=== PATIENT | male | born 1940 | race Caucasian/White ===

== ENCOUNTER 2016-11-17 04:34 | Emergency (ER) ==
[2016-11-17 04:51] VITALS: BP 135/70; TEMP 97.4; BMI 39.5
--- NOTE | 2016-11-17 05:38 | ED.PDOC ---
General ED Provider: Dr. ROBERTO MEJIA-ER Chief Complaint: Fall Stated Complaint: i fell about a week ago--my back is really hurting Time Seen by Physician: 04:45 Mode of Arrival: Wheelchair Information Source: Patient Exam Limitations: No limitations Primary Care Provider: MARIELA RICE Nursing and Triage Documentation Reviewed and Agree: Yes Musculoskeletal Complaint Exam - Back Pain Complaint/Exam Mechanism of Injury: Reports: Trauma Onset/Duration: one week Symptoms Are: Still present Timing: Constant Episodes Lasting: Days Initial Severity: Mild Current Severity: Moderate Location: Reports: Discrete (thoracic) Character: Reports: Aching, Stiffness Aggravating: Reports: Movements, Lifting, Bending, Walking Alleviating: Reports: None Associated Signs and Symptoms: Denies: Swelling, Redness, Bruising, Fever, Weakness, Numbness, Tingling, Abdominal pain, Flank pain, Bladder incontinence, Bowel incontinence, Weight loss, Pain with weight bearing Related History: Reports: Similar episode TAD Risk Factors: Reports: Hypertension AAA Risk Factors: Reports: Hypertension Cauda Equina Risk Factors: Reports: None Epidural Abcess Risk Factors: Reports: None Related Surgical History: Reports: None Focal Tenderness: No Paraspinal Muscle Tenderness: No Paraspinal Muscle Spasm: No Scoliosis: No Lordosis: No Kyphosis: No SLR Test: Right Negative, Left Negative Hip Motion Testing Pain: Right Negative, Left Negative Focal Weakness: Present: None Focal Sensory Loss: Present: None Gait: Present: Abnormal Differential Diagnoses: Fracture, Herniated Disk, Strain, Sprain Review of Systems - Review Of Systems Constitutional: Reports: No symptoms Eyes: Reports: No symptoms Ears, Nose, Mouth, Throat: Reports: No symptoms Respiratory: Reports: No symptoms Cardiac: Reports: No symptoms GI: Reports: No symptoms : Reports: No symptoms Musculoskeletal: Reports: Back pain Skin: Reports: No symptoms Neurological: Reports: No symptoms Endocrine: Reports: No symptoms Hematologic/Lymphatic: Reports: No symptoms All Other Systems: Reviewed and Negative Past Medical History - Past Medical History Endocrine: Reports: Dyslipidemia Cardiovascular: Reports: CAD, [place], Hypertension Respiratory: Reports: Unknown Hematological: Reports: Unknown Gastrointestinal: Reports: Unknown Genitourinary: Reports: Unknown Neuro/Psych: Reports: Unknown Musculoskeletal: Reports: Unknown Cancer: Reports: Unknown - Surgical History General Surgical History: Reports: Unknown - Family History Family History: Reports: Unknown - Social History Smoking Status: Former smoker Hx Substance Use: No Alcohol Screening: None Lives: With family - Immunizations Tetanus Shot up to Date: No (unsure) Physical Exam - Physical Exam Appearance: Well-appearing, No pain distress, Well-nourished Pain Distress: Mild Eyes: KRISTIN, EOMI, Conjunctiva clear ENT: Ears normal, Nose normal, Oropharynx normal Neck: Supple Respiratory: Airway patent, Breath sounds clear, Breath sounds equal, Respirations nonlabored Cardiovascular: RRR, Pulses normal, No rub, No murmur GI/: Soft, Nontender, No masses, Bowel sounds normal, No Organomegaly Musculoskeletal: Normal strength, ROM intact, No edema, No calf tenderness Skin: Warm, Dry, Normal color Neurological: Sensation intact, Motor intact, Reflexes intact, Cranial nerves intact, Alert, Oriented Psychiatric: Affect appropriate, Mood appropriate Interpretation - Radiology Interpretation Radiology Interpretation By: Radiologist Radiology Results: Negative Exam Interpreted: CT Scan Critical Care Note - Critical Care Note Total Time (mins): 0 Course - Course Orders, Labs, Meds: Orders Category Date Time Status CT LUMBAR SPINE W/O CONTRAST Stat RADS 11/17/16 04:[address] THORACIC SPINE W/O CONTRAST Stat RADS 11/17/16 04:54 Completed Vital Signs: Temp Pulse Resp BP Pulse Ox 11/17/16 04:35 97.4 F L 60 20 135/70 94 L Departure - Departure Time of Disposition: 06:08 Disposition: HOME SELF-CARE Discharge Problem: Thoracic back pain Qualifiers: Chronicity: acute Back pain laterality: midline Qualifier Code: (M54.6) Pain in thoracic spine Instructions: Back Pain (ED) Condition: Good Pt referred to PMD for follow-up: Yes Additional Instructions: norco 7.5mg q 4hrs prn pain #25--f/u wtih dr lebron Allergies/Adverse Reactions: Allergies No Known Allergies Allergy (Unverified 11/17/16 04:50) Home Medications: Ambulatory Orders Amiodarone HCl [Cordarone] 200 mg PO DAILY 11/17/16 Aspirin [Aspirin EC] 81 mg PO DAILYWM 11/17/16 Atorvastatin Calcium [Lipitor] 40 mg PO DAILY 11/17/16 Canagliflozin [Invokana] 100 mg PO DAILY 11/17/16 Carvedilol [Coreg] 6.25 mg PO BID 11/17/16 Ergocalciferol (Vitamin D2) [Vitamin D2] 50,000 unit PO DIRECTED 11/17/16 Furosemide 20 mg PO DAILY 11/17/16 Gabapentin 300 mg PO DAILY 11/17/16 Hydrocodone Bit/Acetaminophen [[place] 5-325] 5 - 10 mg PO Q4H PRN 11/17/16 Insulin Glargine,Hum.rec.anlog [Lantus] 40 unit SQ BID 11/17/16 Levothyroxine Sodium [Synthroid] 100 mcg PO QDAC 11/17/16 Metolazone [Zaroxolyn] 2.5 mg PO DAILY 11/17/16 Multivitamins,Therapeutic [Thera-Tabs] 1 each PO DAILY 11/17/16 Potassium Chloride [K-Dur] 20 meq PO DAILY 11/17/16 Disposition Discussed With: Patient, Family
--- NOTE | 2016-11-17 05:54 | CT ---
EXAM: CT of the lumbar spine without contrast. HISTORY: Fall. PROCEDURE: Contiguous axial CT images of the lumbar spine without contrast with coronal and sagitta l reformats. FINDINGS: There is 0.3 cm retrolisthesis of L3 on L4. There is normal alignment of the other lumba r vertebral bodies and facets. The vertebral body heights are maintained. There is severe disc spa ce narrowing at multiple levels of the lumbar spine. There is vacuum disc phenomenon at all levels of the lumbar spine. There are posterior osteophytes at multiple levels of the lumbar spine with mu ltilevel neural foraminal narrowing. There is multilevel facet arthropathy. There is spinal stenos is at L3-L4 and L4-5 secondary to posterior osteophytes, facet arthropathy and ligamentum flavum hyp ertrophy with the AP diameter of the spinal canal measuring approximately 0.7 cm at both levels. Impression: No evidence of fracture. 0.3 cm retrolisthesis of L3 on L4 secondary to facet arthropathy. Multilevel degenerative changes as described. Multilevel neural foraminal narrowing as described. Multilevel spinal stenosis as described.
--- NOTE | 2016-11-17 06:00 | CT ---
EXAM: CT of the thoracic spine without contrast. HISTORY: Fall. PROCEDURE: Contiguous axial CT images of the thoracic spine without contrast with coronal and sagit swetha reformats. Comparison: None. FINDINGS: There are compression deformities of the T1, T5, T6, T7, T8, T9, and T10 vertebral bodies with up to 25% loss of vertebral body height which appear chronic. No retropulsion. No definite ac hamilton fracture identified in the thoracic spine. The intervertebral disc spaces are maintained. There are anterior osteophytes at multiple levels of the thoracic spine. Impression: Compression deformities of the T1 and T5 through T10 vertebral bodies with up to 25% lo ss of vertebral body height which appear chronic. Recommend correlation with physical exam. Normal alignment of the thoracic spine with degenerative changes as described.
== END 2016-11-17 06:15 | disposition home or self-care (01) ==
LOC: ED 04:34
DX: M54.6 Pain in thoracic spine (principal); I10 Essential (primary) hypertension; W19.XXXA Unspecified fall, initial encounter
CPT/HCPCS: 99283

== ENCOUNTER 2016-11-18 13:50 | Outpatient (CLI) ==
[2016-11-17 04:51] VITALS: BMI 39.5
--- NOTE | 2016-11-18 15:16 | US ---
Examination: Villegas-scale and color Doppler ultrasonographic imaging of the abdomen. Right upper jenny drant ultrasound. Comparison: None available. Reason for study: Abdominal pain. FINDINGS: Examination is limited by the patient's body habitus. The liver measures approximately 14.9 cm in length with normal appearing echotexture. There is norm al antegrade portal blood flow. No obvious intrahepatic ductal dilatation. No obvious perihepatic free fluid. The gallbladder has been removed. The common bile duct measures approximately 0.4 cm in diameter which is within normal limits. The pancreas is not well seen secondary to overlying bowel gas and patient body habitus. The right kidney measures approximately 10.7 x 5.3 x 5.8 cm with normal appearing echotexture and va scular flow. No obvious nephrolithiasis. In the midportion of the right kidney. There is a well m arginated cystic structure measuring approximately 3.1 x 3.1 x 2.5 cm without interval vascularity. Impression: 1. Technically limited examination secondary to body habitus. No obvious intra-abdominal findings. 2. Right renal cyst.
== END 2016-11-18 13:51 | disposition home or self-care (01) ==
LOC: RAD 13:50
PROVIDERS: ATTEND Emergency Medicine
DX: R10.9 Unspecified abdominal pain (principal)

== ENCOUNTER 2017-04-07 20:42 | Outpatient (CLI) | END 2017-04-07 20:43 | disposition home or self-care (01) | LOC: AMBL 20:42 | PROVIDERS: ATTEND Internal Medicine Geriatric Medicine | DX: R53.1 Weakness (principal); W06.XXXA Fall from bed, initial encounter ==

== ENCOUNTER 2017-05-19 19:40 | Outpatient (CLI) | END 2017-05-19 19:41 | disposition home or self-care (01) | LOC: AMBL 19:40 | PROVIDERS: ATTEND Internal Medicine Geriatric Medicine | DX: Z04.3 Encounter for examination and observation following other accident (principal); W19.XXXA Unspecified fall, initial encounter ==

== ENCOUNTER 2017-06-24 12:30 | Outpatient (CLI) ==
[2017-06-24 13:08] LABS: CREATININE 1.34 mg/dL (0.60-1.10)
--- NOTE | 2017-06-24 17:07 | CT ---
EXAM: CT Head HISTORY: Headaches, injury COMPARISON: None TECHNIQUE: CT head performed without contrast FINDINGS: Small hyperdensity along right anterior falx may represent small subdural hemorrhage along the falx measuring up to 2 mm versus artifact secondary to falx calcification. This is best seen on coronal imaging 13 - 16. Bender white differentiation is preserved. The ventricles, sulci, and basal cisterns are patent and symmetric. There is chronic ischemic disease of the white matter and cerebr al volume loss. There is no depressed calvarial fracture. The mastoid air cells are clear. The visu alized paranasal sinuses are clear. There are intracranial atherosclerotic calcifications. IMPRESSION: 1. Small hyperdensity along right anterior falx may represent small subdural hemorrhage along the fal x measuring up to 2 mm versus artifact secondary to falx calcification. Follow-up is recommended. No midline shift. 2. Right parietal scalp hematoma. No depressed calvarial fracture. 3. Chronic ischemic disease of the white matter and cerebral volume loss. Critical finding #[address] Dia 4:59 p.m. 06/24/2017.
== END 2017-06-24 12:31 | disposition home or self-care (01) ==
LOC: LAB 12:30
PROVIDERS: ATTEND Internal Medicine
DX: S09.90XA Unspecified injury of head, initial encounter (principal); R51 Headache
CPT/HCPCS: 36415; 82565

== ENCOUNTER 2017-06-26 08:49 | Outpatient (CLI) ==
--- NOTE | 2017-06-26 09:23 | CT ---
EXAM: CT of the head without contrast History: Follow-up subdural hemorrhage. Comparison: Head CT 06/24/2017 Technique: Multiplanar CT images through the head were obtained without the administration of IV con trast Findings: The visualized paranasal sinuses and mastoid air cells are clear in general. No acute jose varial abnormalities. No significant interval change in the right posterior scalp hematoma. Intracranially the ventricular and cisternal spaces are normal in size, shape and configuration for a patient of this age. No dominant mass or midline shift. No hydrocephalous. No acute intracranial hemorrhage or abnormal extraaxial fluid collections. Impression: 1. No acute intracranial hemorrhage. 2. No change in the right scalp hematoma.
== END 2017-06-26 08:50 | disposition home or self-care (01) ==
LOC: RAD 08:49
PROVIDERS: ATTEND Internal Medicine
DX: S09.90XD Unspecified injury of head, subsequent encounter (principal)

== ENCOUNTER 2017-12-06 10:45 | Outpatient (CLI) | END 2017-12-06 10:46 | disposition left against medical advice (07) | LOC: AMBL 10:45 | PROVIDERS: ATTEND Family Medicine | DX: R53.1 Weakness (principal); M25.551 Pain in right hip; W19.XXXA Unspecified fall, initial encounter ==

== ENCOUNTER 2017-12-08 17:15 | Outpatient (CLI) | END 2017-12-08 17:16 | disposition home or self-care (01) | LOC: AMBL 17:15 | PROVIDERS: ATTEND Emergency Medicine | DX: Z74.2 Need for assistance at home and no other household member able to render care (principal) ==

== ENCOUNTER 2018-01-27 18:35 | Outpatient (CLI) | END 2018-01-27 18:36 | disposition left against medical advice (07) | LOC: AMBL 18:35 | PROVIDERS: ATTEND Internal Medicine | DX: Z74.2 Need for assistance at home and no other household member able to render care (principal); W19.XXXA Unspecified fall, initial encounter ==

== ENCOUNTER 2018-02-02 21:17 | Outpatient (CLI) | END 2018-02-02 21:18 | disposition left against medical advice (07) | LOC: AMBL 21:17 | PROVIDERS: ATTEND Emergency Medicine | DX: Z74.2 Need for assistance at home and no other household member able to render care (principal) ==

== ENCOUNTER 2018-02-05 13:35 | Outpatient (CLI) ==
--- NOTE | 2018-02-05 14:30 | CT ---
EXAM: CT BRAIN HISTORY: Right-sided weakness TECHNIQUE: CT brain without intravenous contrast. 5-mm axial sections with Reformations. COMPARISON: 06/26/2017 FINDINGS: There is mild generalized atrophy. There is at least mild periventricular and deep white matter low attenuation which although nonspecific is suggestive of chronic microvascular ischemic change. These findings are stable. Brain otherwise is unremarkable without evidence of hemorrhage or large vessel distribution recent is chemic infarction. There is no suggestion of acute hydrocephalus or subdural fluid collection. No m ass or mass effect. Cranium is within normal limits. Mastoid processes are aerated. The visualized paranasal sinuses a re clear. IMPRESSION: No acute intracranial process.
== END 2018-02-05 13:36 | disposition home or self-care (01) ==
LOC: RAD 13:35
PROVIDERS: ATTEND Internal Medicine
DX: R53.1 Weakness (principal); R29.6 Repeated falls

== ENCOUNTER 2018-02-19 16:38 | Outpatient (CLI) | END 2018-02-19 16:39 | disposition left against medical advice (07) | LOC: AMBL 16:38 | PROVIDERS: ATTEND Internal Medicine | DX: Z74.2 Need for assistance at home and no other household member able to render care (principal); R53.1 Weakness; W19.XXXA Unspecified fall, initial encounter ==

== ENCOUNTER 2018-03-14 18:30 | Outpatient (CLI) | END 2018-03-14 18:31 | disposition left against medical advice (07) | LOC: AMBL 18:30 | PROVIDERS: ATTEND Emergency Medicine | DX: Z74.2 Need for assistance at home and no other household member able to render care (principal); W19.XXXA Unspecified fall, initial encounter ==

== ENCOUNTER 2018-03-17 12:22 | Outpatient (CLI) | END 2018-03-17 12:23 | disposition left against medical advice (07) | LOC: AMBL 12:22 | PROVIDERS: ATTEND Internal Medicine | DX: R26.9 Unspecified abnormalities of gait and mobility (principal); R29.6 Repeated falls; W19.XXXA Unspecified fall, initial encounter ==

== ENCOUNTER 2018-06-26 22:52 | Outpatient (CLI) | END 2018-06-26 23:10 | disposition short-term general hospital (02) | LOC: AMBL 22:52 | PROVIDERS: ATTEND Internal Medicine Geriatric Medicine | DX: R53.1 Weakness (principal); R41.0 Disorientation, unspecified; R06.03 Acute respiratory distress; R73.9 Hyperglycemia, unspecified; I49.3 Ventricular premature depolarization; Z95.0 Presence of cardiac pacemaker ==

== ENCOUNTER 2018-07-14 14:05 | Outpatient (CLI) | END 2018-07-14 14:06 | disposition home or self-care (01) | LOC: AMBL 14:05 | PROVIDERS: ATTEND Internal Medicine | DX: R53.1 Weakness (principal); R41.0 Disorientation, unspecified; E66.01 Morbid (severe) obesity due to excess calories; Z98.2 Presence of cerebrospinal fluid drainage device; Z96.0 Presence of urogenital implants ==

== ENCOUNTER 2018-07-27 14:24 | Inpatient (IN) ==
--- NOTE | 2018-07-27 15:06 | ED.PDOC ---
General ED Provider: Dr. ROBERTO GROSS Chief Complaint: Shortness of Air Stated Complaint: Altered mental status. 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 Started having problems with confusion, altered mental status. Hx of multiple falls. Concern expresed over coughing and respiratory congestion and possible uti. His states has not been acting like self and was up all night, complaining of shortness of breat, has edema of both legs Time Seen by Physician: 14:50 Mode of Arrival: Ambulance Information Source: Patient, Family, Intermediate Exam Limitations: No limitations Primary Care Provider: YEYO GILL Nursing and Triage Documentation Reviewed and Agree: Yes Does patient meet sepsis criteria?: No System Inflammatory Response Syndrome: Not Applicable Sepsis Protocol: For patient's 13 years and over: Temp is 96.8 and below OR 101 and greater Pulse >90 BPM Resp >20/minute Acutely Altered Mental Status Are patient's symptoms suggestive of a new infection, such as: -Pneumonia -Skin, Soft Tissue -Endocarditis -UTI -Bone, Joint Infection -Implantable Device -Acute Abdominal Infection -Wound Infection -Meningitis -Blood Stream Catheter Infection -Unknown Neurological Complaint Exam - Altered Mental Status Complaint/Exam Current Mental Status: Confusion, Other (decrease loc) Onset: Gradual Symptoms Are: Still present Timing: Constant Episodes Lasting: Hours Initial Severity: Moderate Current Severity: Moderate Character: Reports: Lethargy Alleviating: Reports: None Associated Signs and Symptoms: Reports: Dizziness, Weakness, Headache Related History: Denies: Similar episode Cardiac Risk Factors: Reports: None CVA Risk Factors: Reports: None 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 Carotid Bruit Present: Yes Nystagmus Present: Yes Gag Reflex Present: Yes Meningeal Signs Positive: No Focal Weakness: Present: None Focal Sensory Loss: Present: None Gait: Unable Babinski Sign: Negative Right, Negative Left Heel to Toe Normal: No Thrombolytics Considered: No Differential Diagnoses: Metabolic Disorder, Medication reaction, Sepsis Review of Systems - Review Of Systems Constitutional: Reports: Fever, Malaise, Weakness Eyes: Reports: No symptoms Ears, Nose, Mouth, Throat: Reports: No symptoms Respiratory: Reports: Cough, Short of air Cardiac: Reports: No symptoms GI: Reports: No symptoms : Reports: No symptoms Musculoskeletal: Reports: No symptoms Skin: Reports: No symptoms Neurological: Reports: Cognitive dysfunction Endocrine: Reports: No symptoms Hematologic/Lymphatic: Reports: No symptoms All Other Systems: Reviewed and Negative Past Medical History - Past Medical History Endocrine: Reports: Dyslipidemia Cardiovascular: Reports: CAD, [place], Hypertension Respiratory: Reports: Unknown Hematological: Reports: Unknown Gastrointestinal: Reports: Unknown Genitourinary: Reports: Unknown Neuro/Psych: Reports: Unknown Musculoskeletal: Reports: Unknown Cancer: Reports: Unknown - Surgical History General Surgical History: Reports: Unknown - Family History Family History: Reports: Unknown - Social History Smoking Status: Former smoker Hx Substance Use: No Alcohol Screening: None Physical Exam - Physical Exam Appearance: Ill-appearing, Obese Ill-appearing: Moderate Pain Distress: Moderate Eyes: KRISTIN, EOMI, Conjunctiva clear ENT: Ears normal, Nose normal, Oropharynx normal Neck: Supple Respiratory: Airway patent, Breath sounds clear, Breath sounds diminished, Respirations nonlabored, Crackles Cardiovascular: RRR, Pulses normal, No rub, No murmur GI/: Soft, Nontender, No masses, Bowel sounds normal, No Organomegaly Musculoskeletal: Normal strength, ROM intact, No edema, No calf tenderness Skin: Warm, Dry, Normal color Neurological: Sensation intact, Motor intact, Reflexes intact, Cranial nerves intact, Oriented, Alert to verbal, Alert to pain Psychiatric: Affect appropriate (Flattened), Anxious Physician Notification - Case Discussed Physician Notified: Dr Gill Time of Notification: 16:30 (Admit for eval and treatment) Critical Care Note - Critical Care Note Total Time (mins): 60 Course - Course Hematology/Chemistry: 07/27/18 15:43 07/27/18 15:43 Orders, Labs, Meds: Lab Review 07/27/18 07/27/18 07/27/18 15:12 15:20 15:35 WBC RBC Hgb Hct MCV MCH MCHC RDW Coeff of Jim Plt Count Immature Gran % (Auto) Neut % (Auto) Lymph % (Auto) [place] % (Auto) Eos % (Auto) Baso % (Auto) Immature Gran # (Auto) Neut # (Auto) Lymph # (Auto) [place] # (Auto) Eos # (Auto) Baso # (Auto) ESR Puncture Site Rr O2 Saturation 98.0 ABG pH 7.508 H* ABG pCO2 30.4 L ABG pO2 90.0 ABG HCO3 24.2 ABG Total CO2 25 ABG Base Excess 1 Kole Test + FiO2 % 21.0 Sodium Potassium Chloride Carbon Dioxide Anion Gap BUN Creatinine Estimated GFR (MDRD) BUN/Creatinine Ratio Glucose Lactic Acid Calcium Total Bilirubin AST ALT Alkaline Phosphatase Troponin I 0.019 Total Protein Albumin Globulin Albumin/Globulin Ratio Procalcitonin 0.10 Influ A Molecular Assay Influ B Molecular Assay 07/27/18 07/27/18 07/27/18 15:43 15:43 15:43 WBC 12.99 H RBC 4.99 Hgb 14.0 Hct 41.2 L MCV 82.6 MCH 28.1 MCHC 34.0 RDW Coeff of Jim 14.2 Plt Count 144 Immature Gran % (Auto) 0.7 Neut % (Auto) 84.0 Lymph % (Auto) 6.9 L [place] % (Auto) 7.8 Eos % (Auto) 0.4 Baso % (Auto) 0.2 Immature Gran # (Auto) 0.1 Neut # (Auto) 10.9 H Lymph # (Auto) 0.9 [place] # (Auto) 1.0 Eos # (Auto) 0.1 Baso # (Auto) 0.0 ESR 30 H Puncture Site O2 Saturation ABG pH ABG pCO2 ABG pO2 ABG HCO3 ABG Total CO2 ABG Base Excess Kole Test FiO2 % Sodium 133.3 L Potassium 3.66 Chloride 104.2 Carbon Dioxide 24.7 Anion Gap 8.06 BUN 16.9 Creatinine 1.12 H Estimated GFR (MDRD) 63.00 BUN/Creatinine Ratio 15.08 Glucose 86.5 Lactic Acid 0.81 Calcium 9.27 Total Bilirubin 2.00 H AST 35.0 ALT 56.1 H Alkaline Phosphatase 74.8 Troponin I 0.019 Total Protein 6.93 Albumin 3.70 Globulin 3.23 Albumin/Globulin Ratio 1.14 Procalcitonin Influ A Molecular Assay Influ B Molecular Assay 07/27/18 15:51 WBC RBC Hgb Hct MCV MCH MCHC RDW Coeff of Jim Plt Count Immature Gran % (Auto) Neut % (Auto) Lymph % (Auto) [place] % (Auto) Eos % (Auto) Baso % (Auto) Immature Gran # (Auto) Neut # (Auto) Lymph # (Auto) [place] # (Auto) Eos # (Auto) Baso # (Auto) ESR Puncture Site O2 Saturation ABG pH ABG pCO2 ABG pO2 ABG HCO3 ABG Total CO2 ABG Base Excess Kole Test FiO2 % Sodium Potassium Chloride Carbon Dioxide Anion Gap BUN Creatinine Estimated GFR (MDRD) BUN/Creatinine Ratio Glucose Lactic Acid Calcium Total Bilirubin AST ALT Alkaline Phosphatase Troponin I Total Protein Albumin Globulin Albumin/Globulin Ratio Procalcitonin Influ A Molecular Assay Negative by naat Influ B Molecular Assay Negative by naat Orders Category Date Time Status ADMIT PATIENT INPATIENT .TO SCU (MONITORED BED) ADMISSION 07/27/18 17:04 Active ABG DRAW REQUEST Stat CARDIO 07/27/18 15:24 Completed ECHOCARDIOGRAM 2D-M MODE Routine CARDIO 07/27/18 16:55 Ordered EKG-(IP & OP ONLY) Routine CARDIO 07/27/18 16:57 Completed OXYGEN Routine CARDIO 07/27/18 16:55 Active ACTIVITY .Complete BR CARE 07/27/18 16:56 Active BLOOD GLUCOSE MONITORING 0630,1100,1700,2100 CARE 07/27/18 16:57 Active INTAKE & OUTPUT Q8HR CARE 07/27/18 16:55 Active TELEMETRY MONITORING TELE CARE 07/27/18 17:05 Active VITAL SIGNS Q4HR CARE 07/27/18 16:55 Active 2 GRAM SODIUM DIET DIETARY 07/27/18 Dinner Ordered IV [ED IV/MEDIPORT/POWERPORT] .ONCE EMERGENCY 07/27/18 16:34 Active ABG Stat LAB 07/27/18 15:20 Completed BASIC METABOLIC PANEL DAILY@0600 LAB 07/28/18 06:00 Ordered BASIC METABOLIC PANEL DAILY@0600 LAB 07/29/18 06:00 Ordered BLOOD CULTURE (ED ONLY) Stat LAB 07/27/18 15:43 Received CBC W/ AUTO DIFF DAILY@0600 LAB 07/28/18 06:00 Ordered CBC W/ AUTO DIFF DAILY@0600 LAB 07/29/18 06:00 Ordered CBC W/ AUTO DIFF Stat LAB 07/27/18 15:43 Completed CMP [COMPREHENSIVE METABOLIC PANEL] Stat LAB 07/27/18 15:43 Completed ESR Stat LAB 07/27/18 15:43 Completed FLU A & B MOLECULAR [FLU A/B MOLECULAR] Stat LAB 07/27/18 15:51 Completed LACTIC ACID Stat LAB 07/27/18 15:43 Completed PROCALCITONIN Stat LAB 07/27/18 15:12 Completed PT WITH INR DAILY@0600 LAB 07/28/18 06:00 Ordered PT WITH INR DAILY@0600 LAB 07/29/18 06:00 Ordered RAPID STREP SCREEN [MOLECULAR GROUP A STREP] Stat LAB 07/27/18 15:51 Completed TROPONIN I Q8H LAB 07/27/18 15:35 Completed TROPONIN I Q8H LAB 07/28/18 07:00 Ordered TROPONIN I Stat LAB 07/27/18 15:43 Completed UA [URINALYSIS C & S IF INDICATED] Stat LAB 07/27/18 18:43 Completed URINE CULTURE Stat LAB 07/27/18 18:43 Received 0.9 % Sodium Chloride [Saline Flush] MEDS 07/27/18 16:34 Ordered 1 syr IVF PRN PRN Enoxaparin Sodium [Lovenox] MEDS 07/27/18 17:00 Ordered 40 mg SUBCUT DAILY Furosemide [Lasix] MEDS 07/28/18 06:30 Ordered 20 mg IVP QDAC Furosemide [Lasix] MEDS 07/27/18 16:35 Discontinued 40 mg IVP ONCE STA RESUSCITATION STATUS Routine OTHERS 07/27/18 16:[address] CHEST W/O CONTRAST Stat RADS 07/27/18 15:[address] HEAD W/O CONTRAST Stat RADS 07/27/18 15:25 Completed Medications Generic Name Dose Route Start Last Admin Trade Name Freq PRN Reason Stop Dose Admin Acetaminophen 650 mg 07/27/18 19:04 Tylenol PO PRN PRN Mild pain/Fever Hydrocodone Bitart/Acetaminophen 1 tab 07/27/18 19:04 [place] 5-325 PO Q6H PRN MODERATE PAIN Amiodarone HCl 200 mg 07/28/18 09:00 Cordarone PO DAILY [place] Aspirin 81 mg 07/28/18 08:00 Aspirin Ec PO DAILYWM [place] Bisacodyl 10 mg 07/27/18 19:04 Dulcolax RC Q24H PRN Constipation Carvedilol 12.5 mg 07/27/18 21:00 Coreg PO BID [place] Enoxaparin Sodium 40 mg 07/27/18 17:00 07/27/18 19:39 Lovenox SUBCUT 40 mg DAILY [place] Administration Furosemide 20 mg 07/28/18 06:30 Lasix IVP QDAC [place] Insulin Glargine 45 unit 07/27/18 21:00 Lantus SUBCUT BID [place] Levothyroxine Sodium 100 mcg 07/28/18 06:30 Synthroid PO QDAC [place] Magnesium Hydroxide 30 ml 07/27/18 19:04 Milk Of Magnesia PO DAILY PRN Constipation Non-Formulary Medication 30 gm 07/27/18 21:00 Nystatin [Nystatin] TP BID [place] Potassium Chloride 20 meq 07/28/18 09:00 K-Dur PO DAILY [place] Sodium Chloride 1 syr 07/27/18 16:34 07/27/18 16:43 Saline Flush IVF 1 syr PRN PRN Administration To flush IV Tamsulosin HCl 0.4 mg 07/28/18 09:00 Flomax PO DAILY [place] Discontinued Medications Generic Name Dose Route Start Last Admin Trade Name Freq PRN Reason Stop Dose Admin Furosemide 40 mg 07/27/18 16:35 07/27/18 16:42 Lasix IVP 07/27/18 16:36 40 mg ONCE STA Administration Vital Signs: Temp Pulse Resp BP Pulse Ox 07/27/18 14:26 100.7 F H 66 22 135/58 L 91 L Departure - Departure Time of Disposition: 16:30 Disposition: ADMITTED INPATIENT Discharge Problem: CHF (congestive heart failure), HTN (hypertension) Condition: Poor Pt referred to PMD for follow-up: Yes (dr gill) MP verified?: No Allergies/Adverse Reactions: Allergies No Known Allergies Allergy (Verified 07/27/18 14:34) Home Medications: Ambulatory Orders Amiodarone HCl [Cordarone] 200 mg PO DAILY 11/17/16 Aspirin [Aspirin EC] 81 mg PO DAILYWM 11/17/16 Atorvastatin Calcium [Lipitor] 20 mg PO DAILY 11/17/16 Carvedilol [Coreg] 12.5 mg PO BID 11/17/16 Ergocalciferol (Vitamin D2) [Vitamin D2] 50,000 unit PO WE 11/17/16 Furosemide 20 mg PO DAILY 11/17/16 Hydrocodone Bit/Acetaminophen [[place] 5-325] 1 tab PO Q6H PRN 11/17/16 Insulin Glargine,Hum.rec.anlog [Lantus] 45 unit SQ BID 11/17/16 Levothyroxine Sodium [Synthroid] 100 mcg PO QDAC 11/17/16 Multivitamin,Therapeutic [Thera-Tabs] 1 each PO DAILY 11/17/16 Potassium Chloride [K-Dur] 20 meq PO DAILY 11/17/16 Acetaminophen 650 mg PO PRN PRN 07/27/18 Bacitracin/Polymyxin B Sulfate [Bacitracin-Polymyxin Ointment] 1 each TP BID Bisacodyl 10 mg RC Q24H PRN 07/27/18 Magnesium Hydroxide [Milk of Magnesia] 30 ml PO DAILY PRN 07/27/18 Nystatin 30 gm TP BID 07/27/18 Tamsulosin HCl [Flomax] 0.4 mg PO DAILY 07/27/18 Disposition Discussed With: Patient, Family ( advised patient is DNR/He concurs)
--- NOTE | 2018-07-27 16:25 | CT ---
EXAM: CT THORAX HISTORY: Respiratory congestion, altered mental status. TECHNIQUE: CT thorax without intravenous contrast. Multiplanar images presented. COMPARISON: None FINDINGS: Cardiomegaly is present. Calcification of the left apical myocardium possibly related to previous in farction. There is moderately severe atherosclerotic disease. Limited evaluation of the mediastinum and hilar structures without the administration of intravenous contrast agent. There are scattered s mall mediastinal lymph nodes becoming conglomerate in the precarinal space. No definite hilar mass i s seen. Lungs reveal trace pleural effusions. There is mild to moderate pulmonary vascular congestion. Mini mal areas of interstitial edema may be present. Subtle bibasilar consolidations probably related to atelectasis. There is a 7 mm anterior right lung base nodule with no definite calcification. No pne umothorax. Bones reveal moderate degenerative changes of the spine with bridging osteophytic spurs. Probable ea rly compression deformity at what is thought to represent T9. Correlate clinically for any mid back pain. Prior sternotomy. There is mild bilateral gynecomastia. Probable cyst of the posterior right renal cortex. IMPRESSION: 1. Cardiomegaly, pulmonary vascular congestion and possible subtle interstitial edema. Trace pleura l effusions. Moderately severe atherosclerotic disease. Minimal left basilar atelectasis. 2. Nonspecific mediastinal lymph nodes. 3. There is a 7 mm anterior right lung base nodule which is indeterminate. Follow-up CT thorax in 3 months is recommended. 4. Probable early vertebral body compression deformity at T9.
--- NOTE | 2018-07-27 16:29 | CT ---
EXAM: CT Head HISTORY: Increased confusion, post MUSHROOM GROWTH MEDIA MIXER shunt COMPARISON: 02/05/2018 TECHNIQUE: CT head performed without intravenous contrast. FINDINGS: There is right-sided ventriculoperitoneal shunt terminating near midline in the region of t he frontal horns lateral ventricles. Small low attenuation in the right frontal region near the shun t catheter. Ventricular size is unchanged. There is no midline shift, or intracranial hemmorhage. G mila white differentiation is preserved. There is no extra-axial collection. The ventricles, sulci, and basal cisterns are patent and symmetric. There is chronic ischemic disease of the white matter a nd cerebral volume loss. There is no depressed calvarial fracture. The mastoid air cells are clear. The visualized paranasal sinuses are clear. There are intracranial atherosclerotic calcifications. IMPRESSION: 1. No intracranial hemorrhage or midline shift 2. Right-sided ventriculostomy shunt catheter terminating near midline. Small low attenuation in the right frontal region near the shunt catheter likely relates to recent shunt placement. Ventricular s ize is unchanged. 3. Chronic ischemic disease of the white matter and cerebral volume loss.
[2018-07-27] MEDS ORDERED: LASIX IVP STA (16:35)
[2018-07-27 19:04] VITALS: BMI 41.8
[2018-07-27] MEDS ORDERED: TYLENOL PO PRN (19:04)
[2018-07-27] MEDS ORDERED: MILK OF MAGNESIA PO PRN (19:04)
[2018-07-27] MEDS ORDERED: NORCO 5-325 PO PRN (19:04)
[2018-07-27] MEDS ORDERED: DULCOLAX RC PRN (19:04)
[2018-07-27] MEDS: LOVENOX SUBCUT SCH (19:39)
[2018-07-27] MEDS ORDERED: NYSTATIN 30 GM TP SCH (21:00)
[2018-07-27] MEDS ORDERED: LANTUS SUBCUT SCH (21:00)
[2018-07-27] MEDS ORDERED: COREG PO SCH (21:00)
[2018-07-27] MEDS ORDERED: NYSTOP POWDER TP ONE (22:52)
[2018-07-27] MEDS: XOPENEX 1.25 MG NEB SCH (23:08)
[2018-07-27] MEDS ORDERED: XOPENEX 1.25 MG NEB ONE (23:08)
[2018-07-28] MEDS: XOPENEX 1.25 MG NEB SCH ×4 (04:38→23:15)
[2018-07-28] MEDS ORDERED: LASIX IVP SCH (06:30)
[2018-07-28] MEDS: SYNTHROID PO SCH (06:31)
[2018-07-28] MEDS ORDERED: LASIX IVP STA (08:28)
[2018-07-28] MEDS ORDERED: DECADRON 4 MG/ML SDV IM STA (08:29)
[2018-07-28] MEDS: ASPIRIN EC PO SCH (10:06)
[2018-07-28] MEDS: COREG PO SCH ×2 (10:06→16:58)
[2018-07-28] MEDS: FLOMAX PO SCH (10:06)
[2018-07-28] MEDS: K-DUR PO SCH (10:06)
[2018-07-28] MEDS: CORDARONE PO SCH (10:06)
[2018-07-28] MEDS: LANTUS SUBCUT SCH ×2 (10:07→20:43)
[2018-07-28] MEDS: LOVENOX SUBCUT SCH (10:08)
[2018-07-28] MEDS: NYSTOP POWDER TP SCH ×2 (10:08→20:47)
--- NOTE | 2018-07-28 14:58 | RS.OTINEVL ---
Subjective - Patient information Date of Evaluation: 07/28/18 Date of Arrival on Unit: 07/27/18 Usual Living Arrangement: [facility] Living Arrangement Comments: Pt is currently at [facility] nursing and rehab. Pt was receiving therapy at [facility]. Home Environment: House Medical History: CHF Medical History Comments:: 1/3 of lower heart is , Trouble emptying bladder , SOA, Pacemaker, hypercholesterolemia, fluid on brain and had a shunt placed on 07/14/18. Circumcision on 07/16/18. Surgical History Comments:: shunt in brain 07/14/18, pacemaker, circumcision 07/16, 5 bypass, defibrillator, Subjective Information/ Patient Comments:: "I feel like shit." "Hurt all over." - Level of function Prior to this admission, the patient could do the following:: Partially Dependent Ambulation Abilities prior to this admission: Before surgeries, patient was independent with ADLS. Current Level of Function: Partially Dependent Current Equipment Used at Home: rolling walker, shower chair Pain Assessment - Pain Pain Score: 6 Side: bilateral Pain Location Body Site: Generalized Pain Aggravating Factors: Changing Position, Exercise/Activity Pain Alleviating Factors: Medication Interventions - Objective Patient Orientation: Person, Place, Situation Current Interventions: IV's, Oxygen, Telemetry Observation: Pt has a delay in processing and requires moderate assistance to move from supine to sit. Interventions - ROM Right Upper Extremity AROM: Slight limitation Left Upper Extremity AROM: Slight limitation - Strength Right Upper Extremity Strength: Mild Weakness Left Upper Extremity Strength: Mild Weakness - Sensation Right Upper Extremity Sensation: Intact/Normal Left Upper Extremity Sensation: Intact/Normal Balance - Sitting Balance Static Sitting Balance: Fair Dynamic Sitting Balance: Fair - Standing Balance Static Standing Balance: Poor Dynamic Standing Balance: Poor - Comments Balance Assessment Comments: Poor ADL Skills - Self Feeding Self Feeding: CGA - Grooming Grooming: Mod Assist - Bathing Bathing UE: Max Assist Bathing LE: Max Assist - Dressing Dressing UE: Max Assist Dressing LE: Max Assist - Toilet Management Toileting Management: Max Assist Functional Mobility - Bed Mobility Rolling R/L: Mod Assist Scooting: Max Assist Supine to Sit: Mod Assist Sit to Supine: Mod Assist - Transfers Sit to Stand: Mod Assist, 2 person assist Stand to Sit: Mod Assist, 2 person assist - Ambulation Weight Bearing Status: FWB Assistive Device Used: Standard Walker Assistance needed with Ambulation: Mod Assist - Safety Awareness Safety Awareness: Good MARIA ALEJANDRA INDEX SCORE: . Additional Treatment Performed - Additional units charged ADL: 18 - Time with patient Length of Evaluation: 30 Total treatment time: 18 Activities Do you enjoy playing games?: No Would you be interested in leaving your room for activities?: Yes Would you enjoy group activities?: No Do you have difficulty with your vision?: No Patient Interests:: Watching Television Patient Education Patient Education: Education of diagnosis, Home Exercise Program, Home Safety Teaching Recipient: Patient, Legal Guardian Teaching Methods: Teach Back Method Used, Discussion Assessment Problem List:: Decreased level of function, Requires training/education, Decreased safety/Risk of falls, Weakness, Pain limits previous level of function Rehab Potential: Good Further Therapy Indicated?: Yes Evaluation Complexity: HISTORY: Medium, EXAM OF BODY SYSTEMS: Medium, CLINICAL DECISION MAKING: Medium Short Term Goals - Goals GOAL 1: Pt to increase RUE functional use to 50% of time. Goal to be met by: 08/03/18 GOAL 2: Pt to increase sitting time EOB to 10 minutes Unsupported. Goal to be met by: 08/03/18 GOAL 3: Pt to increase Upper extremity coordination to reach across midline indep. Goal to be met by: 08/03/18 [facility] Goals GOAL 1: Pt to increase RUE functional use to 100% of time. Goal to be met by: 08/06/18 GOAL 2: Pt to increase sitting time EOB to 15 minutes Unsupported. Goal to be met by: 08/06/18 GOAL 3: Pt to increase RUE coordination to be intact. Goal to be met by: 08/06/18 Plan Plan of Care: Therapeutic EX, Neuromuscular Re-Educ, Therapeutic Activity, Self- Care/Home Management Modalities: Cold Pack/Cryotherapy Frequency of Treatment: 1-2 X day, as tolerated Duration of Treatment: 2 Weeks Anticipated Discharge Destination: Home Treatment Diagnosis (ICD 10 Codes): R27.8 Impaired coordination. Z74.0 Reduced mobility,. Z74.1 Need for assistance with personal care Has the Physician been added for Co-signature?: Yes
--- NOTE | 2018-07-28 15:08 | RS.PTINEVL ---
Subjective - Patient information Date of Evaluation: 07/28/18 Date of Arrival on Unit: 07/27/18 Admitted From:: [facility] ([facility]) Diagnosis: CHF, HTN, Normal pressure hydrocephalus Usual Living Arrangement: [facility] Living Arrangement Comments: has been in long-term since having shunt placement for rehab. Prior to surgery pt lived at home with . Home Environment: House, Stairs (few) Medical History: Hypertension Medical History Comments:: CAD, PR, normal pressure hydrocephalus LATEX ALLERGY?: No Surgical History Comments:: ventriculoperitoneal shunt placement 07/16/18, circumcision 07/16/18 Medications: see chart Subjective Information/ Patient Comments:: pt with difficulty with word finding issues and slow processing with instructions. pt states he feels bad today. - Level of function Prior to this admission, the patient could do the following:: Partially Dependent Ambulation Current Level of Function: Partially Dependent Current Equipment Used at Home: rolling walker, shower chair Pain Assessement - Location "all over" Description: Aching Pain Behavior: Moaning, Facial Grimacing Interventions - Objective Patient Orientation: Person Current Interventions: IV's, Oxygen, Telemetry Range of Motion - ROM Right Upper Extremity AROM: WFL's Left Upper Extremity AROM: WFL's Right Lower Extremity AROM: WFL's Left Lower Extremity AROM: WFL's Comments:: pt with ROM WFL's with joint stiffness. Muscle Strength - Muscle Strength Right Upper Extremity Strength: Mild Weakness (grossly 4-/5) Left Upper Extremity Strength: Mild Weakness (grossly 4-/5) Right Lower Extremity Strength: Mild Weakness (hip flex 3/5, knee flex/ext 3+/5 , ankle Df/PF 4-/5) Left Lower Extremity Strength: Mild Weakness (hip flex 3+/5, knee flex/ext 4/5, ankle DF/PF 4/5) Sensation - Sensation Right Upper Extremity Sensation: Intact/Normal Left Upper Extremity Sensation: Intact/Normal Right Lower Extremity Sensation: Intact/Normal Left Lower Extremity Sensation: Intact/Normal Palpation Palpation Findings: None/Normal Balance - Sitting Balance and Reactions Static Sitting Balance: Poor Dynamic Sitting Balance: Poor Sitting Equilibrium Reactions: Absent Left, Absent Right Sitting Protective Reactions: Absent Left, Absent Right - Standing Balance and Reactions Static Standing Balance: Poor Dynamic Standing Balance: Poor Standing Equilibrium Reactions: Absent Left, Absent Right Standing Protective Reactions: Absent Left, Absent Right - Comments Balance Assessment Comments: pt requires repeated verbal and tactile cues for posture and balance. pt leans backward with standing. pt with episodes of LOB with amb requiring mod assist of 2 to maintain balance. Functional Mobility - Bed Mobility Rolling R/L: Mod Assist, 1 person assist, 2 person assist Supine to Sit: Mod Assist, 2 person assist - Transfers Sit to Stand: Mod Assist, 2 person assist Stand to Sit: Mod Assist, 2 person assist Comments:: pt stood x 3 unable to take any steps. - Safety Awareness Safety Awareness: Poor MARIA ALEJANDRA INDEX SCORE: n/a Treatment time - Time with patient Length of Evaluation: 26 Total treatment time: 29 Patient Education - Education Patient Education: Activity Modification, Education of Plan of Care Teaching Recipient: Patient Teaching Methods: Discussion Comments: discussion with pt regarding safety as well as POC Assessment - Assessment Problem List:: Decreased level of function, Requires training/education, Decreased safety/Risk of falls, Weakness, Cognitive status limits abilities Rehab Potential: Good Further Therapy Indicated?: Yes Candidate for Swing Bed for Therapy Services?: Feel pt may not be a candidate for swing bed for therapy due to pt will require longer rehab program for strengthening. Evaluation Complexity: HISTORY: Medium (CHF, HTN, NPH, mult falls, ), EXAM OF BODY SYSTEMS: Medium (strength, posture, balance transfers gait), CLINICAL PRESENTATION: Medium (evolving), CLINICAL DECISION MAKING: Medium Short Term Goals GOAL #1: pt transfer sup to sit mod x 1, sit to/from stand mod x 1 Goal to be met by: 07/31/18 GOAL #2: pt amb with rwx 10ft with mod x 2 with no LOB Goal to be met by: 07/31/18 GOAL #3: able to sit at side of bed unsupported with min challenges maintain balance Goal to be met by: 07/31/18 GOAL #4: Rolling with mod x 1 Goal to be met by: 07/31/18 [facility] Goals GOAL #1: pt transfer sup to/from sit to/from stand minx 1 Goal to be met by: 08/03/18 GOAL #2: pt amb 50ft with rwx with min x 1 with no LOB Goal to be met by: 08/03/18 GOAL #3: pt able to sit unsupported reach away from/across midline Goal to be met by: 08/03/18 Plan Plan of Care: Therapeutic EX, Therapeutic Activity Other:: gait training Frequency of Treatment: 1-2 X day, as tolerated Duration of Treatment: 1 Week Anticipated Discharge Destination: [facility] Treatment Diagnosis (ICD 10 Codes): R26.2 difficulty walking. R26.81 balance impaired. M62.81 weakness Has the Physician been added for Co-signature?: Yes
[2018-07-28] MEDS: ROCEPHIN 1 GM in SODIUM CHLORIDE 50 ML IV SCH (16:55)
[2018-07-29] MEDS: XOPENEX 1.25 MG NEB SCH ×3 (05:05→17:00)
[2018-07-29] MEDS: LASIX IVP SCH (05:57)
[2018-07-29] MEDS: SYNTHROID PO SCH (05:57)
--- NOTE | 2018-07-29 07:09 | PN ---
DATE OF SERVICE: 07/28/18 SUBJECTIVE: 78-year-old white male hospitalized with CHF. The patient is sitting there confused, alert. The patient is not in any distress. REVIEW OF SYSTEMS: CONSTITUTIONAL: No night sweats. No fatigue, malaise, lethargy. No fever or chills. HEENT: Eyes: No visual changes. No eye pain. No eye discharge. ENT: No runny nose. No epistaxis. No sinus pain. No sore throat. No odynophagia. No congestion. RESPIRATORY: No cough, no congestion. No hemoptysis. Positive for shortness of breath on exertion. CARDIOVASCULAR: No angina symptoms. No CHF symptoms. No atypical chest pain for CAD. No palpitations. No PND, no orthopnea. GASTROINTESTINAL: No abdominal pain. No nausea or vomiting. No diarrhea or constipation. No hematemesis. No hematochezia. GENITOURINARY: No urgency. No frequency. No dysuria. No hematuria. No obstructive symptoms. No discharge. No pain. No significant abnormal bleeding. MUSCULOSKELETAL: No musculoskeletal pain; no joint swelling. NEUROLOGICAL: No headache. No neck pain. No syncope. No seizures. No dizziness. PSYCHIATRIC: Not anxious. No depression. No suicidal thoughts. No homicidal thoughts. SKIN: No rash. No lesions. No wounds. ENDOCRINE: No unexplained weight loss. No weight gain. HEMATOLOGIC/LYMPHATIC: No anemia. No purpura. No petechiae. No prolonged or excessive bleeding. No palpable lymph nodes. PHYSICAL EXAMINATION: VITAL SIGNS: Temperature 98.4, pulse 62, respiratory rate 24, BP 138/62, pulse ox 96%. HEENT: Head normocephalic, atraumatic. Eyes: Extraocular muscles are intact. Pupils are equal, round and reactive to light and accommodation. Ears: No lesions. Nose appeared normal. Throat: No exudate or erythema. NECK: Supple. No JVD, no carotid bruit. No lymphadenopathy or thyromegaly. LUNGS: Decreased breath sounds but clear to auscultation. Percussion note normal. Chest symmetrical. HEART: S1, S2, no S3. Grade II/ systolic murmur. No cyanosis or clubbing. No ascites. Pulses: Dorsalis pedis and posterior tibial pulses +1 to +2 both sides. ABDOMEN: Soft. Nontender. Bowel sounds active. No CVA tenderness. No mass felt. EXTREMITIES: No edema. Full range of motion of all extremities, equal. NEUROLOGIC: No focal deficit. Cranial nerves II through XII are grossly intact. No headache, no double vision or headache. SKIN: Not dry. Intact. Turgor - normal. LYMPHATIC: No palpable lymph nodes/no lymphedema. MUSCULOSKELETAL: Normal joints with no swelling. Muscle tone is normal. LABS: Hemoglobin 14, hematocrit 41, WBC 12,000, normal differential. Creatinine 1.1, BUN 16, potassium 3.6. These were done on 07/27/18. ASSESSMENT: 1. ACUTE CONGESTIVE HEART FAILURE 2. SEVERE CHRONIC CORONARY ARTERY DISEASE 3. SEVERE PERIPHERAL ARTERIAL DISEASE 4. OBESITY 5. SEVERE DIABETES MELLITUS 6. HYPERTENSION 7. DYSLIPIDEMIA PLAN: 1. Give IV Lasix 2. Elevate the legs - since edema is trace to +1 CONDITION: Stable. The patient is DNR. TIME SPENT: More than 30 minutes. Plan and coordination of the patient's care discussed in the presence of nurse. BOLA
[2018-07-29] MEDS: ASPIRIN EC PO SCH (08:36)
[2018-07-29] MEDS: FLOMAX PO SCH (08:37)
[2018-07-29] MEDS: K-DUR PO SCH (08:37)
[2018-07-29] MEDS: CORDARONE PO SCH (08:37)
[2018-07-29] MEDS: COREG PO SCH ×2 (08:37→18:03)
[2018-07-29] MEDS: LANTUS SUBCUT SCH ×2 (08:37→21:23)
[2018-07-29] MEDS: ROCEPHIN 1 GM in SODIUM CHLORIDE 50 ML IV SCH (08:37)
[2018-07-29] MEDS: LOVENOX SUBCUT SCH (08:38)
[2018-07-29] MEDS: NYSTOP POWDER TP SCH ×2 (08:42→21:23)
[2018-07-29] MEDS ORDERED: DECADRON 4 MG/ML SDV IM ONE (09:00)
--- NOTE | 2018-07-29 09:41 | PCM.PROG ---
Attending Provider: ATTENDING PROVIDER: Dr. YEYO ANDERSON DATE OF SERVICE: 07/29/18 SUBJECTIVE: This 78 year old WHITE/ M was hospitalized 07/27/18. The patient is hospitalized with CHF. Condition has improved. The patient does not have any symptoms of CHF or coronary insufficiency. Appetite is improved. He is more mentally alert. REVIEW OF SYSTEMS: CONSTITUTIONAL: No night sweats. No fatigue, malaise, lethargy. No fever or chills. HEENT: Eyes: No visual changes. No eye pain. No eye discharge. ENT: No runny nose. No epistaxis. No sinus pain. No odynophagia. No congestion. RESPIRATORY: No cough, no congestion. No hemoptysis. No shortness of breath at rest. CARDIOVASCULAR: No angina symptoms. No CHF symptoms. No coronary insufficiency at rest. No atypical chest pain for CAD. No palpitations. No orthopnea.. GASTROINTESTINAL: Appetite is good. No abdominal pain. No nausea or vomiting. No diarrhea or constipation. No hematemesis. No hematochezia. GENITOURINARY: No urgency. No frequency. No dysuria. No hematuria. No obstructive symptoms. No discharge. No pain. No significant abnormal bleeding. MUSCULOSKELETAL: No musculoskeletal pain; no joint swelling. NEUROLOGICAL: Awake, alert, oriented to time, place and person. No headache. No neck pain. No syncope. No seizures. No dizziness. PSYCHIATRIC: Not anxious. No depression. No suicidal thoughts. No homicidal thoughts. SKIN: No rash. No lesions. No wounds. ENDOCRINE: No unexplained weight loss. No weight gain. HEMATOLOGIC/LYMPHATIC: No anemia. No purpura. No petechiae. No prolonged or excessive bleeding. No palpable lymph nodes. PHYSICAL EXAMINATION: GENERAL: The patient is awake, alert and oriented, lying in bed in no distress. VITAL SIGNS: Temperature 97.5 F, Pulse 67, Respiratory Rate 18, BP 117/60, Pulse Ox 95% HEENT: Head normocephalic, atraumatic. Eyes: Extraocular muscles are intact. Pupils are equal, round and reactive to light and accommodation. Ears: No lesions. Nose appeared normal. Throat: No exudate or erythema. NECK: Supple. No JVD, no carotid bruit. No lymphadenopathy or thyromegaly. LUNGS: Decreased breath sounds. Good air entry. Clear to auscultation. Percussion note normal. Chest symmetrical. HEART: S1, S2, no S3. Grade II/ systolic murmur. No cyanosis or clubbing. No ascites. Pulses: Dorsalis pedis and posterior tibial pulses +1 to +2 both sides. ABDOMEN: Soft. Non-tender. Bowel sounds active. No CVA tenderness. No mass felt. EXTREMITIES: No edema. Full range of motion of all extremities, equal. NEUROLOGIC: No focal deficit. Cranial nerves II through XII are grossly intact. No headache, no double vision or headache. SKIN: Warm and dry. Intact. Turgor-normal. LYMPHATIC: No palpable lymph nodes/no lymphedema. MUSCULOSKELETAL: Normal joints with no swelling. Muscle tone is normal. LAB REVIEW: 07/29/18 04:50 07/29/18 04:50 07/29/18 04:50: Sodium 132.5 L, Potassium 3.59, Chloride 98.7, Carbon Dioxide 28.7, Anion Gap 8.69, BUN 26.0 H, Creatinine 1.30 H, Estimated GFR (MDRD) 53.00 , BUN/Creatinine Ratio 20.00, Glucose 254.5 H D, Calcium 9.28, Total Bilirubin 1.53 H, AST 27.3, ALT 42.6, Alkaline Phosphatase 71.9, Total Protein 6.63, Albumin 3.49 L, Globulin 3.14, Albumin/Globulin Ratio 1.11 07/29/18 04:50: PT 12.0 H, INR 1.21 07/29/18 04:50: WBC 8.44, RBC 4.81, Hgb 13.3 L, Hct 39.7 L, MCV 82.5, MCH 27.7, MCHC 33.5, RDW Coeff of Jim 13.7, Plt Count 120 L, Immature Gran % (Auto) 0.6, Neut % (Auto) 84.6, Lymph % (Auto) 7.9 L, [place] % (Auto) 6.9, Eos % (Auto) 0.0, Baso % (Auto) 0.0, Immature Gran # (Auto) 0.1, Neut # (Auto) 7.1 H, Lymph # ( Auto) 0.7, [place] # (Auto) 0.6, Eos # (Auto) 0.0, Baso # (Auto) 0.0 ASSESSMENT: 1. CHF SEEMS TO HAVE RESOLVED 2. HISTORY OF CAD 3. DIABETES MELLITUS 4. HYPERTENSION 5. DYSLIPIDEMIA PLAN: 1. 1 cc Decadron 2. Continue to elevate legs 3. Continue IV Lasix 4. Chest x-ray today 5. Will likely d/c tomorrow Plan and coordination of the patient's care discussed in the presence of Swimmer and nurse. CONDITION: Stable. PROGNOSIS: Poor. SCRIBED BY: NICOLLE MAST Cement Side Laster scribed while in presence of service performed by Dr. YEYO ANDERSON on 07/29/18 ([id number])
--- NOTE | 2018-07-29 11:17 | HP ---
DATE OF SERVICE: 07/27/18 HISTORY OF PRESENT ILLNESS: This is an 78-year-old white male who is currently at [facility] after being hospitalized at [facility]. He had experienced a fall at home. He has a history of falls. His stated over the past month they had become more frequent. She took him to the emergency room. CT showed normopressure hydrocephalus so he had a CLINICAL RESEARCH NURSE shunt placed by Dr. Mishra. He also had some problems with phimosis and currently has a urinary catheter. Yesterday, I received a call from [facility] stating that he was short of breath. His oxygen saturation was going down to 87%. He was kind of confused. PAST MEDICAL HISTORY: CHF Pacemaker Chronic leg edema Obesity Hypertension Dyslipidemia Noncompliance Recent hydrocephalus History of multiple falls History of noncompliance with diet and lifestyle Coronary artery disease History of NC Diabetes mellitus type 2 Hypothyroidism History of hypokalemia Atrial fibrillation times one incident while he was in the hospital recently He is not on chronic anticoagulation as this was a limited incident PAST SURGICAL HISTORY: Recent CLINICAL RESEARCH NURSE shunt placement REVIEW OF SYSTEMS: CONSTITUTIONAL: Weakness. No night sweats. No malaise, lethargy. No fever or chills. HEENT: Eyes: No visual changes. No eye pain. No eye discharge. ENT: No runny nose. No epistaxis. No sinus pain. No sore throat. No odynophagia. No ear pain. No congestion. RESPIRATORY: No cough, no congestion. No hemoptysis. Shortness of breath. CARDIOVASCULAR: Positive for leg edema. No angina symptoms. No CHF symptoms. No atypical chest pain for CAD. No palpitations. No PND. No orthopnea. GASTROINTESTINAL: No abdominal pain. No nausea or vomiting. No diarrhea or constipation. No hematemesis. No hematochezia. GENITOURINARY: No urgency. No frequency. No dysuria. No hematuria. No obstructive symptoms. No discharge. No pain. No significant abnormal bleeding. MUSCULOSKELETAL: No musculoskeletal pain. No joint swelling. No arthritis. NEUROLOGICAL: Confusion. No headache. No neck pain. No syncope. No seizures. No dizziness. PSYCHIATRIC: Not anxious. No depression. No suicidal thoughts. No homicidal thoughts. SKIN: No rash. No lesions. No wounds. ENDOCRINE: No unexplained weight loss. No weight gain. HEMATOLOGIC/LYMPHATIC: No anemia. No purpura. No petechiae. No prolonged or excessive bleeding. No palpable lymph nodes. PERSONAL/FAMILY/SOCIAL HISTORY: He is a former smoker. He had previously lived at home with his and now is undergoing physical therapy at [facility]. MEDICATIONS: (HOME) Synthroid 100 mcg p.o. q.d a.c. Cordarone 200 mg p.o. daily Insulin Lantus 45 unit SQ b.i.d. Hydrocodone/Acetaminophen one tab p.o. q.6h p.r.n. Furosemide 20 mg p.o. daily Ergocalciferol (Vitamin D2) 50,000 unit p.o. WE Coreg 12.5 mg p.o. b.i.d. Aspirin 81 mg p.o. daily with meal Thera-Tabs one each p.o. daily K-Dur 20 mEq p.o. daily Lipitor 20 mg p.o. daily Flomax 0.4 mg p.o. daily Bisacodyl 10 mg RC q.24h p.r.n. Nystatin 30 gm TP b.i.d. Bacitracin/Polymyxin one each TP b.i.d. Acetaminophen 650 mg p.o. p.r.n. Magnesium Hydroxide MOM 30 mL p.o. daily p.r.n. ALLERGIES: NKDA PHYSICAL EXAMINATION: VITAL SIGNS: Temperature 100.7, heart rate 66, respirations 22, BP 135/58, pulse oximetry 91%. HEENT: Head normocephalic, atraumatic. Eyes: Extraocular muscles are intact. Pupils are equal, round and reactive to light and accommodation. Ears: No lesions. Nose appeared normal. Throat: No exudate or erythema. NECK: Supple. No JVD, no carotid bruit. No lymphadenopathy or thyromegaly. LUNGS: Severely diminished breath sounds. Clear to auscultation. Percussion note normal. Chest symmetrical. HEART: Regular heart rate. S1, S2, no S3. No murmurs. No cyanosis or clubbing. No ascites. Pulses: Dorsalis pedis and posterior tibial pulses +1 to +2 bilaterally. ABDOMEN: Soft. Nontender. Bowel sounds active. No CVA tenderness. No mass felt. EXTREMITIES: 2 to 3+ leg edema. Full range of motion of all extremities, equal. NEUROLOGIC: Alert, oriented to person only. No focal deficit. Cranial nerves II through XII are grossly intact. No headache, no double vision or headache. SKIN: Not dry. Intact. Turgor - normal. LYMPHATIC: No palpable lymph nodes/no lymphedema. MUSCULOSKELETAL: Normal joints with no swelling. Muscle tone is normal. LABS: White count 12.99, hemoglobin 14, hematocrit 31.2, platelets 144. Sodium 133, potassium 3.6, BUN 16, creatinine 1.12, glucose 86. ABGs on room air 02 sat 98, pH 7.508, pc02 30.4, p02 90, bicarb 24, total c02 25, base excess of 1, troponin less than 0.01. Total bili 2, AST 35, ALT 56, alkaline phosphatase 74. Sed rate 30. Influenza A and B were both negative. CT of the chest showed cardiomegaly, pulmonary vascular congestion, possible subtle interstitial edema , trace bilateral effusion, severe atherosclerotic disease. 7 mm right lung base nodule. Early compression deformity at T9. CT of the head shows no acute intracranial hemorrhage or shift. Shunt is in place. Ventricular size is unchanged from previous. ASSESSMENT: 1. ACUTE CHF 2. HYPERTENSION 3. ACUTE CHANGE IN MENTAL STATUS 4. RECENT BP SHUNT PLACEMENT DUE TO NORMOPRESSURE HYDROCEPHALUS 5. LEG EDEMA WORSENED 6. CORONARY ARTERY DISEASE 7. PACEMAKER PLAN: 1. We will admit to Special Care Unit 2. Routine telemetry orders 3. CBC, CMP daily 4. Continue home medications 5. Low sodium diet 6. Keep legs elevated 7. 20 mg of Lasix IV push now 8. UA with culture and sensitivity if indicated 9. Start Rocephin 1 mg IV daily 10. Will do Lasix 20 mg IV daily 11. Will follow closely TIME SPENT: More than 70 minutes. [facility]
--- NOTE | 2018-07-29 16:37 | DI ---
Exam: Chest one-view. HISTORY: Follow-up chest CT pulmonary vascular congestion. Comparison: 07/27/2018. Findings: Portable image of the chest demonstrates mildly expanded lungs without pneumothorax. The pulmonary vasculature appears mildly congested. The cardiac silhouette is at the upper limit of norm al size. The thoracic aorta is partially calcified. Intact sternal wires and the cardiac pacemaker are again noted. Skeletal structures are grossly stable. Impressions: Low inspiratory volumes with resultant crowding of the bronchovascular markings. Mild pulmonary vascular congestion. Cardiomegaly and prior sternotomy.
[2018-07-30] MEDS: XOPENEX 1.25 MG NEB SCH ×2 (04:54→05:09)
[2018-07-30] MEDS: LASIX IVP SCH (06:17)
[2018-07-30] MEDS: SYNTHROID PO SCH (06:17)
[2018-07-30] MEDS: K-DUR PO SCH (09:18)
[2018-07-30] MEDS: FLOMAX PO SCH (09:18)
[2018-07-30] MEDS: ROCEPHIN 1 GM in SODIUM CHLORIDE 50 ML IV SCH (09:18)
[2018-07-30] MEDS: COREG PO SCH (09:18)
[2018-07-30] MEDS: CORDARONE PO SCH (09:18)
[2018-07-30] MEDS: ASPIRIN EC PO SCH (09:18)
[2018-07-30] MEDS: LANTUS SUBCUT SCH (09:18)
[2018-07-30] MEDS: LOVENOX SUBCUT SCH (09:19)
[2018-07-30] MEDS: NYSTOP POWDER TP SCH (09:19)
--- NOTE | 2018-07-30 10:05 | PCM.PROG ---
Attending Provider: ATTENDING PROVIDER: Dr. YEYO ANDERSON DATE OF SERVICE: 07/30/18 SUBJECTIVE: This 78 year old WHITE/ M was hospitalized 07/27/18. Chest x-ray showed mild pulmonary vascular congestion. He had Lasix this morning. He has been incontinent three times. He si feeling good this morning. REVIEW OF SYSTEMS: CONSTITUTIONAL: No night sweats. No fatigue, malaise, lethargy. No fever or chills. HEENT: Eyes: No visual changes. No eye pain. No eye discharge. ENT: No runny nose. No epistaxis. No sinus pain. No odynophagia. No congestion. RESPIRATORY: No cough, no congestion. No hemoptysis. No shortness of breath. CARDIOVASCULAR: No angina symptoms. No CHF symptoms. No atypical chest pain for CAD. No palpitations. No PND, no orthopnea. GASTROINTESTINAL: No abdominal pain. No nausea or vomiting. No diarrhea or constipation. No hematemesis. No hematochezia. GENITOURINARY: No urgency. No frequency. No dysuria. No hematuria. No obstructive symptoms. No discharge. No pain. No significant abnormal bleeding. MUSCULOSKELETAL: No musculoskeletal pain; no joint swelling. NEUROLOGICAL: Awake, alert, oriented to place and person. No headache. No neck pain. No syncope. No seizures. No dizziness. PSYCHIATRIC: Not anxious. No depression. No suicidal thoughts. No homicidal thoughts. SKIN: No rash. No lesions. No wounds. ENDOCRINE: No unexplained weight loss. No weight gain. HEMATOLOGIC/LYMPHATIC: No anemia. No purpura. No petechiae. No prolonged or excessive bleeding. No palpable lymph nodes. PHYSICAL EXAMINATION: GENERAL: The patient is awake, alert and oriented, lying in bed in no distress. VITAL SIGNS: Temperature 97.7 F, Pulse 63, Respiratory Rate 18, BP 136/92, Pulse Ox 95% HEENT: Head normocephalic, atraumatic. Eyes: Extraocular muscles are intact. Pupils are equal, round and reactive to light and accommodation. Ears: No lesions. Nose appeared normal. Throat: No exudate or erythema. NECK: Supple. No JVD, no carotid bruit. No lymphadenopathy or thyromegaly. LUNGS: Few creps at the bases. Clear to auscultation. Percussion note normal. Chest symmetrical. HEART: S1, S2, no S3. Grade I to II/ murmur. No cyanosis or clubbing. No ascites. Pulses: Dorsalis pedis and posterior tibial pulses +1 to +2 both sides. ABDOMEN: Soft. Non-tender. Bowel sounds active. No CVA tenderness. No mass felt. EXTREMITIES: No edema. Full range of motion of all extremities, equal. NEUROLOGIC: No focal deficit. Cranial nerves II through XII are grossly intact. No headache, no double vision or headache. SKIN: Warm and dry. Intact. Turgor-normal. LYMPHATIC: No palpable lymph nodes/no lymphedema. MUSCULOSKELETAL: Normal joints with no swelling. Muscle tone is normal. LAB REVIEW: 07/30/18 05:10 07/30/18 05:10 07/30/18 05:10: Sodium 135.8 L, Potassium 3.65, Chloride 101.1, Carbon Dioxide 27.6, Anion Gap 10.75, BUN 29.9 H, Creatinine 1.06, Estimated GFR (MDRD) 67.00, BUN/Creatinine Ratio 28.20, Glucose 228.8 H, Calcium 9.17, Total Bilirubin 1.14 , AST 37.7, ALT 49.0, Alkaline Phosphatase 66.6, Total Protein 6.60, Albumin 3.56, Globulin 3.04, Albumin/Globulin Ratio 1.17 07/30/18 05:10: WBC 8.30, RBC 4.78, Hgb 13.3 L, Hct 39.8 L, MCV 83.3, MCH 27.8, MCHC 33.4, RDW Coeff of Jim 13.5, Plt Count 108 L, Immature Gran % (Auto) 0.5, Neut % (Auto) 84.3, Lymph % (Auto) 8.6 L, [place] % (Auto) 6.5, Eos % (Auto) 0.1, Baso % (Auto) 0.0, Immature Gran # (Auto) 0.0, Neut # (Auto) 7.0 H, Lymph # ( Auto) 0.7, [place] # (Auto) 0.5, Eos # (Auto) 0.0, Baso # (Auto) 0.0 ASSESSMENT: CHF CINICALLY SEEMS TO BE RESOLVING. CHEST X-RAY LOOKS BETTER. PLAN: 1. Discharge today. 2. Continue Lasix - will increase dose to 40 mg. 3. Keep legs elevated. 4. Cut down on salt. 5. Echocardiogram report pending. Plan and coordination of the patient's care discussed in the presence of Road Sign Installer and nurse. CONDITION: STABLE PROGNOSIS: POOR SCRIBED BY: NICOLLE MAST Magnetic Doctor scribed while in presence of service performed by Dr. YEYO ANDERSON on 07/30/18 ([id number])
--- NOTE | 2018-07-30 10:13 | DS ---
DATE OF SERVICE: 07/30/18 FINAL DIAGNOSIS: 1. CHF 2. LEG EDEMA 3. ACUTE MENTAL STATUS CHANGE RESOLVED 4. BRONCHITIS 5. CORONARY ARTERY DISEASE 6. HYPERTENSION 7. DIABETES MELLITUS 8. HYPOTHYROID 9. HYPERLIPIDEMIA 10. ATRIAL FIBRILLATION PER HISTORY; ISOLATED INCIDENT 11. COMPRESSION DEFORMITY, T9 12. OBESITY, BMI 41 13. RECENT HYDROCEPHALUS (TREATED WITH SHUNT) 14. VENTRICULOSTOMY SHUNT RIGHT SIDE (JUL 14, 2018) 15. CIRCUMCISION (JUL 16, 2018) 16. PACEMAKER/DEFIBRILLATOR 17. CABG, 20 YEARS AGO 18. CHOLECYSTECTOMY DISCHARGE INSTRUCTIONS: 1. Discharge to [facility]. Followup appointment with Bianca Reyna APRN, who will see the patient on intermediate rounds in 7 to 10 days. 2. Elevate legs at night and when sitting in the chair. 3. Physical Therapy evaluation. 4. Speech Therapy evaluation. 5. Occupational Therapy evaluation. 6. Weigh weekly. 7. Accu-Cheks b.i.d. 8. CBC, CMP in one week, then monthly. 9. Lipids, A1C every 6 months. 10. Incontinent care p.r.n. 11. Decubitus/skin precautions p.r.n. 12. CODE STATUS: DNR MEDICATIONS AT DISCHARGE: Acetaminophen (Tylenol) 650 mg p.o. p.r.n. Hydrocodone/Acetaminophen one tab p.o. q.6h p.r.n. Amiodarone (Cordarone) 200 mg p.o. daily [place] Aspirin 81 mg p.o. daily with meal [place] Dulcolax 10 mg RC q.24h p.r.n. Coreg 12.5 mg p.o. b.i.d. [place] Lasix 40 mg p.o. q.d a.c. [place] Lantus 45 unit subcut b.i.d. [place] Albuterol nebs 0.083% INH q.i.d. p.r.n. wheeze/cough Levothyroxine (Synthroid) 100 mcg p.o. q. d. a.c. [facility] Milk of Magnesia 30 mL p.o. daily p.r.n. Nystatin one application TP b.i.d. [place] K-Dur 20 mEq p.o. daily [place] Tamsulosin (Flomax 0.4 mg p.o. daily [place] Multivitamin one p.o. daily [place] Atorvastatin 20 mg p.o. daily [place] Keflex 500 mg p.o. b.i.d. [place] for 5 days Ergocalciferol 50,000 units p.o. weekly NEW PRESCRIPTIONS: Keflex 500 mg b.i.d. for 5 days DIET INSTRUCTIONS: Regular as tolerated, low salt. Regular consistency liquids. ACTIVITY: Physical and Occupational Therapy; elevate legs when sitting in chair. SMOKING: N/A DISEASE SPECIFIC EDUCATION: Leg edema Nutrition HOSPITAL COURSE: This is an 78-year-old White/ male hospitalized through the intermediate with acute congestive heart failure. The patient was treated with IV Lasix and leg elevation. Education carried out about CHF. Condition improved. He had no symptoms of CHF on discharge. Chest x-ray looked better. Condition at time of discharge was stable. He was put on 40 mg of Lasix with potassium supplement. He also was given Keflex on discharge for bronchitis. Echocardiogram done this a.m. revealed dilated left ventricular cavity more than 6 cm with LV ejection fraction 30 to 35%. Normal LV posterior and inferior wall contractility and hypokinetic septal wall. LA cavity enlarged. Valvular structures normal. The patient's condition is stable, prognosis is poor. The patient is DNR. The patient is also going to be put on Albuterol q.i.d. p.r.n. TIME SPENT: More than 60 minutes. NICOLED
[2018-07-30 10:15] VITALS: BP 110/51; TEMP 97.5
--- NOTE | 2018-07-30 10:15 | PN ---
CODING FOR BILLING 07/27/18 LEVEL 5 - ADMISSION 07/28/18 INTERMEDIATE 07/29/18 INTERMEDIATE 07/30/18 DISCHARGE MTDD
--- NOTE | 2018-07-30 10:26 | CM.DICTOOL ---
ADMISSION: 07/27/18 17:29 DISCHARGE: JULY 30, 2018 DATE OF SERVICE: 07/30/18 FINAL DIAGNOSIS CHF LEG EDEMA ACUTE MENTAL STATUS CHANGE, RESOLVED BRONCHITIS CORONARY ARTERY DISEASE HYPERTENSION DIABETES MELLITUS HYPOTHYROID HYPERLIPIDEMIA ATRIAL FIBRILLATION PER HISTORY; ISOLATED INCIDENT COMPRESSION DEFORMITY, T9 OBESITY, BMI 41 RECENT HYDROCEPHALUS (TREATED WITH SHUNT) VENTRICULOSTOMY SHUNT, RIGHT SIDE (2017) CIRCUMCISION (JUL 16, 2018) PACEMAKER/DEFIBRILLATOR CABG, 20 YRS AGO CHOLECYSTECTOMY LAST VITALS Temp Pulse Resp BP Pulse Ox 97.7 F 63 18 136/92 H 95 07/30/18 05:23 07/30/18 05:23 07/30/18 05:23 07/30/18 05:23 07/30/18 05:23 TAKE THESE MEDICATIONS AT DISCHARGE Acetaminophen (Tylenol) 650 mg PO PRN PRN PRN Reason: Mild pain/Fever Hydrocodone Bitart/Acetaminophen (Reading 5-325) 1 tab PO Q6H PRN PRN Reason: MODERATE PAIN Amiodarone HCl (Cordarone) 200 mg PO DAILY [facility] Last Admin: 07/30/18 09:18 Dose: 200 mg Aspirin (Aspirin Ec) 81 mg PO DAILYWM [facility] Last Admin: 07/30/18 09:18 Dose: 81 mg Bisacodyl (Dulcolax) 10 mg RC Q24H PRN PRN Reason: Constipation Carvedilol (Coreg) 12.5 mg PO BIDWM [facility] Last Admin: 07/30/18 09:18 Dose: 12.5 mg Furosemide (Lasix) 40 mg PO QDAC [facility] Last Admin: 07/30/18 06:17 Dose: 40 mg Insulin Glargine (Lantus) 45 unit SUBCUT BID [facility] Last Admin: 07/30/18 09:18 Dose: 25 unit Albuterol Nebs 0.083% INH QID PRN Wheezing/Cough Last Admin: Levothyroxine Sodium (Synthroid) 100 mcg PO QDAC [facility] Last Admin: 07/30/18 06:17 Dose: 100 mcg Magnesium Hydroxide (Milk Of Magnesia) 30 ml PO DAILY PRN PRN Reason: Constipation Nystatin (Nystop Powder) 1 applic TP BID [facility] Last Admin: 07/30/18 09:19 Dose: 1 applic Potassium Chloride (K-Dur) 20 meq PO DAILY [facility] Last Admin: 07/30/18 09:18 Dose: 20 meq Tamsulosin HCl (Flomax) 0.4 mg PO DAILY [facility] Last Admin: 07/30/18 09:18 Dose: 0.4 mg Multivitamin 1 PO DAILY [facility] Last Admin: Atorvastatin 20 mg PO DAILY [facility] Last Admin: Keflex 500 mg PO BID [facility] for 5 days Last Admin: Ergocalciferol 50, 000 units PO WEEKLY Last Admin: ALLERGIES No Known Allergies Allergy (Verified 07/27/18 14:34) MEDICATIONS CHANGED Lasix 20 mg DAILY increased to 40 mg DAILY NEW PRESCRIPTIONS: Keflex 500 mg BID for 5 days SMOKING: Not Applicable DISEASE SPECIFIC EDUCATION: Leg Edema Nutrition LAB REVIEW: 07/30/18 05:10 07/30/18 05:10 07/30/18 05:10: Sodium 135.8 L, Potassium 3.65, Chloride 101.1, Carbon Dioxide 27.6, Anion Gap 10.75, BUN 29.9 H, Creatinine 1.06, Estimated GFR (MDRD) 67.00, BUN/Creatinine Ratio 28.20, Glucose 228.8 H, Calcium 9.17, Total Bilirubin 1.14 , AST 37.7, ALT 49.0, Alkaline Phosphatase 66.6, Total Protein 6.60, Albumin 3.56, Globulin 3.04, Albumin/Globulin Ratio 1.17 07/30/18 05:10: WBC 8.30, RBC 4.78, Hgb 13.3 L, Hct 39.8 L, MCV 83.3, MCH 27.8, MCHC 33.4, RDW Coeff of Jim 13.5, Plt Count 108 L, Immature Gran % (Auto) 0.5, Neut % (Auto) 84.3, Lymph % (Auto) 8.6 L, [place] % (Auto) 6.5, Eos % (Auto) 0.1, Baso % (Auto) 0.0, Immature Gran # (Auto) 0.0, Neut # (Auto) 7.0 H, Lymph # ( Auto) 0.7, [place] # (Auto) 0.5, Eos # (Auto) 0.0, Baso # (Auto) 0.0 PLAN: Discharge to [facility] Diet: Regular as tolerated, low salt Regular consistency liquids Elevate legs at night and when sitting in the chair Physical Therapy Evaluation Speech Therapy Evaluation Occupational Therapy Evaluation Weigh weekly Accu-checks BID CBC, CMP in one week, then monthly Lipids, A1C every 6 months Vital Signs, including oximetry daily for 1 week, then weekly Incontinent care prn Decubitus/Skin precautions prn Code Status: DNR Bianca Reyna APRN will see the patient on long-term rounds in 7-10 days. Mr. Cage is alert to person x 3. His speech is hesitant, but clear. He is independent with feeding, but requires assistance with tray preparation. He requires assistance of 2 staff members with bed mobility. He requires assistance of 2 staff members for transfers. He ambulates a short distance (6 feet yesterday) with therapy and use of a rolling walker. Bilateral lower extremity weakness is noted. Urinary and stool incontinence is noted. The skin is intact and free of decubitus ulcers. A small scabbed area is noted to the right lower abdomen. A healing incision is noted to the right scalp from recent ventriculostomy shunt insertion. Daquan Dia MD
--- NOTE | 2018-07-30 15:57 | ECHO2D ---
Date of Exam: 07/30/18 Ordering Physician: DR. YEYO ANDERSON Room # : SCU 2 Reason for Echo: CHF, CABG M-Mode Normal Adult Results LV Dimensions Normal Adult Results AoV Opening excursions >1.6 >1.6 LVEDD-base- 3.5-5.8 6.1 Ao root dimensions 2.0-3.7 2.8 LVESD-base- 3.1-4.6 L. Atrium dimensions 1.9-3.8 4.5 Post. Wall thickness 0.8-1.1 1.2 IV septum (thickness) 0.7-1.2 1.2 Post. Wall excursion 0.72-1.3 NORMAL Septal motion 0.4 Systolic motion R. Ventricular cavity 1.5-2.0 NORMAL LVEF 60% 35% Paradoxical septal wall motion NORMAL 2-D : ENLARGED LEFT ATRIAL CAVITY/LEFT VENTRICLE CAVITY--NORMAL LEFT VENTRICULAR POST /INFERIOR WALL MOTION--HYPOKINETIC SEPTAL WALL--NORMAL VALVES-- NO EFFUSION, NO THROMBUS M-MODE: MV: NORMAL AV: NORMAL TV: NORMAL PV: CHAMBER SIZE: ENLARGED LEFT ATRIAL AND LEFT VENTRICLE CAVITIES WALL MOTION: HYPOKINETIC SEPTUM PERICARDIUM: NORMAL INTERPRETATION: 1. BORDERLINE LEFT VENTRICULAR HYPERTROPHY 2. ENLARGED LEFT ATRIAL AND LEFT VENTRICLE CAVITIES 3. HYPOKINETIC SEPTUM LEFT VENTRICULAR EJECTION FRACTION 35% MTDD
== END 2018-07-30 11:40 | DRG 948 ==
LOC: ED 14:24 → UNDOADMIN 17:29 → MEDSURG B 17:29 → SCU 17:29
PROVIDERS: ADMIT Internal Medicine; ATTEND Internal Medicine
DX: R41.82 Altered mental status, unspecified (principal); R60.0 Localized edema; R42 Dizziness and giddiness; R53.1 Weakness; R51 Headache; R50.9 Fever, unspecified; R53.81 Other malaise; I50.9 Heart failure, unspecified; I10 Essential (primary) hypertension; I25.10 Atherosclerotic heart disease of native coronary artery without angina pectoris; I73.9 Peripheral vascular disease, unspecified; E11.9 Type 2 diabetes mellitus without complications; E78.5 Hyperlipidemia, unspecified; E66.9 Obesity, unspecified
CPT/HCPCS: 36415; 80053; 81001; 82803; 82962; 83605; 84145; 84484; 85025; 85610; 85651; 87040; 87081; 87086; 87502; 87651; 93005; 93010; 94640; 96374; 97802; 99223; 99232; 99239; 99284

== ENCOUNTER 2018-12-17 11:06 | Outpatient (CLI) ==
--- NOTE | 2018-12-17 11:46 | DI ---
EXAM: RIGHT WRIST THREE VIEWS HISTORY: Right wrist pain FINDINGS: Bones appear demineralized. There is mild diffuse arthropathy. There is no fracture or d islocation identified. Heavy vascular calcifications are present. IMPRESSION: 1. Arthropathy and demineralization. No fracture or dislocation is identified. 2. Vascular calcifications.
== END 2018-12-17 11:07 | disposition home or self-care (01) ==
LOC: RAD 11:06
PROVIDERS: ATTEND Internal Medicine
DX: M25.531 Pain in right wrist (principal)

== ENCOUNTER 2018-12-18 10:39 | Emergency (ER) ==
[2018-12-18] MEDS ORDERED: ZOSYN 4.5 GM 4.5 GM in SODIUM CHLORIDE 100 ML IV STA (10:42)
[2018-12-18] MEDS ORDERED: SODIUM CHLORIDE 1,000 ML IV STA (10:43)
[2018-12-18 10:58] VITALS: BP 132/63; TEMP 99.4; BMI 38.8
--- NOTE | 2018-12-18 11:11 | CT ---
EXAM: CT chest without contrast HISTORY: Cough COMPARISON: CT chest 09/09/2018 and 08/27/2018 TECHNIQUE: Serial axial images of the chest were obtained from the lung apices to the upper abdomen without contrast. These were viewed in multiple planes. FINDINGS: The thyroid is normal. The visualized vessels are unremarkable without calcific atheroscl erotic disease. The heart is enlarged with calcification in the left ventricular apex. Lead wires t erminating right atrium and ventricle. There are no pathologically enlarged mediastinal or hilar lym ph nodes. There is no pneumothorax or effusion. There is a 0.8 cm pulmonary nodule in the right middle lobe. This is unchanged. There is bilateral lower lobe airway thickening. No acute consolidation or addit ional nodule is noted. Limited views of the soft tissues in the upper abdomen. There is scattered degenerative disease of t he thoracic spine. IMPRESSION: 1. Lower lobe airway thickening and atelectasis. Suggestive of small airways disease/infection. 2. Unchanged right middle lobe pulmonary nodule. Follow-up CT in 6 months. 3. Cardiomegaly with changes of prior myocardial infarct.
--- NOTE | 2018-12-18 11:32 | CT ---
EXAM: CT abdomen pelvis without contrast HISTORY: 1 week of fever COMPARISON: Same day CT chest TECHNIQUE: Serial axial images of the abdomen pelvis were performed from the lung bases through the inferior pelvis without contrast. These were viewed in multiple planes. FINDINGS: Lung bases are better evaluated on same day CT chest Evaluation is limited due to lack of contrast. The liver is unremarkable and minimally nodular in ap pearance. The adrenal glands are normal. There is an exophytic low attenuation lesion of the ict development manager ior right kidney measuring 2.1 cm in diameter with indeterminate Hounsfield units. The left kidney i s unremarkable. There is bilateral nonspecific perinephric stranding. The spleen is unremarkable. The pancreas is unremarkable. The stomach and small bowel is unremarkable. Peritoneal dialysis catheter is in place. The colon de monstrates mild diverticulosis. The prostate is normal. Urinary bladder is distended. There is mod erate atherosclerotic disease. There is no acute compression fracture or subluxation with moderate t o severe degenerative disease of the spine. IMPRESSION: 1. No acute intra-abdominal or pelvic process to account for patient's symptoms. 2. Peritoneal dialysis catheter is in place. 3. Questionable minimal nodularity of the liver with no hepatic mass. 4. Exophytic low attenuation lesion off the posterior right kidney is most consistent with a cyst wi th nonspecific bilateral perinephric stranding. 5. Diverticulosis without diverticulitis. 6. Moderate degenerative disease and scattered atherosclerotic disease.
--- NOTE | 2018-12-18 12:23 | ED.PDOC ---
General ED Provider: Dr. JAMIE ALANIS Chief Complaint: Fever Stated Complaint: fever Time Seen by Physician: 11:00 Mode of Arrival: Ambulance Information Source: [facility], EMT Exam Limitations: No limitations Primary Care Provider: YEYO ANDERSON Nursing and Triage Documentation Reviewed and Agree: Yes Does patient meet sepsis criteria?: No System Inflammatory Response Syndrome: Not Applicable Sepsis Protocol: For patient's 13 years and over: Temp is 96.8 and below OR 101 and greater Pulse >90 BPM Resp >20/minute Acutely Altered Mental Status Are patient's symptoms suggestive of a new infection, such as: -Pneumonia -Skin, Soft Tissue -Endocarditis -UTI -Bone, Joint Infection -Implantable Device -Acute Abdominal Infection -Wound Infection -Meningitis -Blood Stream Catheter Infection -Unknown Miscellaneous Complaint Exam - Febrile Illness/Adult Complaint/Exam Symptoms Are: Resolved Timing: Intermittent Episodes Lasting: Days Initial Severity: Mild Current Severity: None Aggravating: Reports: None Alleviating: Reports: None Associated Signs and Symptoms: Denies: Headache, Fluid intake, Short of air, Cough, Sore throat, Nausea, Vomiting, Chills, Diaphoresis, Dysuria, Arthralgia, Stiff neck, Myalgia, Rash, Altered mental status Pseudomonas Risk Factors: Reports: None Serious Bacterial Infection Risk Factors: Reports: None Current Antibiotic Use: No Related Surgical History: None Specific Findings: Absent: Meningeal signs, Diaphoresis, Joint swelling, Erythema, Cellulitis, Lymphadenopathy, Petechiae, CVA tenderness Quality Indicator For Non-Traumatic Chest Pain/Syncope: EKG Performed Review of Systems - Review Of Systems Constitutional: Reports: Fever, Malaise, Loss of appetite Eyes: Reports: No symptoms Ears, Nose, Mouth, Throat: Reports: No symptoms Respiratory: Reports: Cough Cardiac: Reports: No symptoms GI: Reports: Abdominal pain : Reports: No symptoms Musculoskeletal: Reports: No symptoms Skin: Reports: No symptoms Neurological: Reports: No symptoms Endocrine: Reports: No symptoms Hematologic/Lymphatic: Reports: No symptoms All Other Systems: Reviewed and Negative Past Medical History - Past Medical History Endocrine: Reports: Dyslipidemia Cardiovascular: Reports: CAD, [place], Hypertension Respiratory: Reports: Unknown Hematological: Reports: Unknown Gastrointestinal: Reports: Unknown Genitourinary: Reports: Unknown Neuro/Psych: Reports: Unknown Musculoskeletal: Reports: Unknown Cancer: Reports: Unknown - Surgical History General Surgical History: Reports: Unknown - Family History Family History: Reports: Unknown - Social History Smoking Status: Never smoker Hx Substance Use: No Alcohol Screening: None - Immunizations Tetanus Shot up to Date: No Physical Exam - Physical Exam Appearance: Well-appearing, No pain distress, Well-nourished Eyes: KRISTIN, EOMI, Conjunctiva clear ENT: Ears normal, Nose normal, Oropharynx normal Respiratory: Airway patent, Breath sounds clear, Breath sounds equal, Respirations nonlabored Cardiovascular: RRR, Pulses normal, No rub, No murmur GI/: Soft, Nontender, No masses, Bowel sounds normal, No Organomegaly Musculoskeletal: Normal strength, ROM intact, No edema, No calf tenderness Skin: Warm, Dry, Normal color Neurological: Sensation intact, Motor intact, Reflexes intact, Cranial nerves intact, Alert, Oriented Psychiatric: Affect appropriate, Mood appropriate Interpretation - Radiology Interpretation Radiology Interpretation By: Radiologist Radiology Results: No acute changes Exam Interpreted: CT Scan - Hand Coper Rate: Normal Rhythm: Sinus - EKG Interpretation Rate: Normal Rhythm: Sinus Ectopy: PVCs Re-Evaluation - Re-Evaluation Time of Re-Evaluation: 12:00 Status: Improved Vital Signs Stable: Yes Pain Level: 0 Appearance: NAD Lungs: Clear Skin: Warm and Dry Neuro: Alert and Oriented X3 CV: RRR Physician Notification - Case Discussed Physician Notified: pmd Time of Notification: 12:24 (AFTER IMAGING AND BLOOD WORK WERE DISCUSSED PMD STATED PT MY GO BACK TO CUSTODIAL) Critical Care Note - Critical Care Note Total Time (mins): 0 Course - Course Hematology/Chemistry: 12/18/18 11:15 12/18/18 11:15 Orders, Labs, Meds: Lab Review 12/18/18 12/18/18 12/18/18 11:15 11:15 11:15 WBC 10.77 H RBC 5.32 Hgb 14.5 Hct 43.7 MCV 82.1 MCH 27.3 MCHC 33.2 RDW Coeff of Jim 14.5 Plt Count 207 Immature Gran % (Auto) 0.4 Neut % (Auto) 74.5 Lymph % (Auto) 10.8 [place] % (Auto) 12.9 H Eos % (Auto) 1.0 Baso % (Auto) 0.4 Immature Gran # (Auto) 0.0 Neut # (Auto) 8.0 H Lymph # (Auto) 1.2 [place] # (Auto) 1.4 Eos # (Auto) 0.1 Baso # (Auto) 0.0 PT 11.4 H INR 1.14 APTT 28.8 Sodium 139.4 Potassium 3.93 Chloride 99.5 Carbon Dioxide 30.4 H Anion Gap 13.43 BUN 31.4 H Creatinine 1.50 H Estimated GFR (MDRD) 45.00 BUN/Creatinine Ratio 20.93 Glucose 116.7 H Lactic Acid Calcium 9.22 Total Bilirubin 1.43 H AST 45.4 ALT 64.3 H Alkaline Phosphatase 98.2 Total Creatine Kinase 41.6 L Troponin I 0.036 Total Protein 7.96 Albumin 3.89 Globulin 4.07 Albumin/Globulin Ratio 0.95 Procalcitonin Urine Color Urine Clarity Urine pH Ur Specific [place] Urine Protein Urine Glucose (UA) Urine Ketones Urine Blood Urine Nitrite Urine Bilirubin Urine Urobilinogen Ur Leukocyte Esterase Influ A Molecular Assay Influ B Molecular Assay 12/18/18 12/18/18 12/18/18 11:15 11:15 11:15 WBC RBC Hgb Hct MCV MCH MCHC RDW Coeff of Jim Plt Count Immature Gran % (Auto) Neut % (Auto) Lymph % (Auto) [place] % (Auto) Eos % (Auto) Baso % (Auto) Immature Gran # (Auto) Neut # (Auto) Lymph # (Auto) [place] # (Auto) Eos # (Auto) Baso # (Auto) PT INR APTT Sodium Potassium Chloride Carbon Dioxide Anion Gap BUN Creatinine Estimated GFR (MDRD) BUN/Creatinine Ratio Glucose Lactic Acid 1.50 Calcium Total Bilirubin AST ALT Alkaline Phosphatase Total Creatine Kinase Troponin I Total Protein Albumin Globulin Albumin/Globulin Ratio Procalcitonin 0.15 Urine Color Urine Clarity Urine pH Ur Specific [place] Urine Protein Urine Glucose (UA) Urine Ketones Urine Blood Urine Nitrite Urine Bilirubin Urine Urobilinogen Ur Leukocyte Esterase Influ A Molecular Assay Negative by naat Influ B Molecular Assay Negative by naat 12/18/18 11:45 WBC RBC Hgb Hct MCV MCH MCHC RDW Coeff of Jim Plt Count Immature Gran % (Auto) Neut % (Auto) Lymph % (Auto) [place] % (Auto) Eos % (Auto) Baso % (Auto) Immature Gran # (Auto) Neut # (Auto) Lymph # (Auto) [place] # (Auto) Eos # (Auto) Baso # (Auto) PT INR APTT Sodium Potassium Chloride Carbon Dioxide Anion Gap BUN Creatinine Estimated GFR (MDRD) BUN/Creatinine Ratio Glucose Lactic Acid Calcium Total Bilirubin AST ALT Alkaline Phosphatase Total Creatine Kinase Troponin I Total Protein Albumin Globulin Albumin/Globulin Ratio Procalcitonin Urine Color Yellow Urine Clarity Clear Urine pH 5.5 Ur Specific [place] 1.010 Urine Protein Negative Urine Glucose (UA) Negative Urine Ketones Negative Urine Blood Negative Urine Nitrite Negative Urine Bilirubin Negative Urine Urobilinogen 0.2 Ur Leukocyte Esterase Negative Influ A Molecular Assay Influ B Molecular Assay Orders Category Date Time Status EKG-(ED ONLY) Stat CARDIO 12/18/18 10:41 Completed ED IV/MEDIPORT/POWERPORT .ONCE EMERGENCY 12/18/18 10:41 Active BLOOD CULTURE (ED ONLY) Stat LAB 12/18/18 11:15 Received CBC W/ AUTO DIFF Stat LAB 12/18/18 11:15 Completed COMPREHENSIVE METABOLIC PANEL Stat LAB 12/18/18 11:15 Completed CREATINE KINASE Stat LAB 12/18/18 11:15 Completed FLU A/B MOLECULAR Stat LAB 12/18/18 11:15 Completed LACTIC ACID Stat LAB 12/18/18 11:15 Completed PARTIAL THROMBOPLASTIN TIME Stat LAB 12/18/18 11:15 Completed PROCALCITONIN Stat LAB 12/18/18 11:15 Completed PT WITH INR Stat LAB 12/18/18 11:15 Completed TROPONIN I Stat LAB 12/18/18 11:15 Completed URINALYSIS C & S IF INDICATED Stat LAB 12/18/18 11:45 Completed 0.9 % Sodium Chloride [Saline Flush] MEDS 12/18/18 10:40 Discontinued 1 syr IVF PRN PRN Acetaminophen [Tylenol Liquid 650 mg/20.3 ml] MEDS 12/18/18 13:00 Discontinued 650 mg PO ONCE STA Piperacillin Sodium/Tazobactam [Zosyn 4.5 gm] 4.5 gm MEDS 12/18/18 10:42 Discontinued 0.9 % Sodium Chloride [Sodium Chloride] 100 ml IV ONCE Sodium Chloride 0.9% [Sodium Chloride] 1,000 ml MEDS 12/18/18 10:43 Discontinued IV 125 mls/hr CT ABD/PEL WO RENAL STONE PROT Stat RADS 12/18/18 10:[address] CHEST W/O CONTRAST Stat RADS 12/18/18 10:41 Completed Medications Discontinued Medications Generic Name Dose Route Start Last Admin Trade Name Freq PRN Reason Stop Dose Admin Acetaminophen 650 mg 12/18/18 13:00 12/18/18 13:11 Tylenol Liquid 650 Mg/20.3 Ml PO 12/18/18 13:01 650 mg ONCE STA Administration Piperacillin Sod/Tazobactam 100 mls @ 100 mls/hr 12/18/18 10:42 12/18/18 11: 25 Sod 4.5 gm/ Sodium Chloride IV 12/18/18 11:41 100 mls/hr ONCE STA Administration Sodium Chloride 1,000 mls @ 125 mls/hr 12/18/18 10:43 12/18/18 11:25 Sodium Chloride IV 12/18/18 18:42 125 mls/hr .Q8H STA Administration Sodium Chloride 1 syr 12/18/18 10:40 Saline Flush IVF PRN PRN To flush IV Vital Signs: Temp Pulse Resp BP Pulse Ox 12/18/18 10:41 99.4 F 81 24 132/63 98 Departure - Departure Time of Disposition: 12:23 Disposition: HOME SELF-CARE Discharge Problem: Fever Instructions: Fever in Adults (ED) Condition: Good Pt referred to PMD for follow-up: No IPMP verified?: No Prescriptions: Cefdinir [Omnicef] 300 mg PO Q12HR #10 capsule Allergies/Adverse Reactions: Allergies No Known Allergies Allergy (Verified 07/27/18 14:34) Home Medications: Ambulatory Orders Amiodarone HCl [Cordarone] 200 mg PO DAILY 11/17/16 Aspirin [Aspirin EC] 81 mg PO DAILYWM 11/17/16 Atorvastatin Calcium [Lipitor] 40 mg PO DAILY 11/17/16 Insulin Glargine,Hum.rec.anlog [Lantus] 45 unit SQ BID 11/17/16 Levothyroxine Sodium [Synthroid] 100 mcg PO QDAC 11/17/16 Multivitamin,Therapeutic [Thera-Tabs] 1 each PO DAILY 11/17/16 Potassium Chloride [K-Dur] 20 meq PO DAILY 11/17/16 Magnesium Hydroxide [Milk of Magnesia] 30 ml PO DAILY PRN 07/27/18 Furosemide [Lasix Tab] 40 mg PO QDAC #30 tablet 07/30/18 Gabapentin [Neurontin] 300 mg PO BID 09/09/18 Carvedilol [Coreg] 3.125 mg PO BID #60 tablet 09/15/18 Sacubitril/Valsartan [Entresto 24 mg-26 mg Tablet] 1 each PO BID #60 tablet 02/26 Albuterol Sulfate 0.083% Neb [Albuterol 0.083% Neb] 1 vial NEB RTQ8H PRN Cefdinir [Omnicef] 300 mg PO Q12HR #10 capsule 12/18/18 Disposition Discussed With: Patient
[2018-12-18] MEDS ORDERED: TYLENOL LIQUID 650 MG/20.3 ML PO STA (13:00)
== END 2018-12-18 13:26 | disposition home or self-care (01) ==
LOC: ED 10:39
DX: R50.9 Fever, unspecified (principal); R05 Cough; R53.81 Other malaise; E78.5 Hyperlipidemia, unspecified; I10 Essential (primary) hypertension; I25.10 Atherosclerotic heart disease of native coronary artery without angina pectoris; I25.2 Old myocardial infarction; Z79.899 Other long term (current) drug therapy; R60.0 Localized edema
CPT/HCPCS: 36415; 74176; 80053; 81001; 82550; 83605; 84145; 84484; 85025; 85610; 85730; 87040; 87502; 93005; 93010; 96361; 96365; 99284

== ENCOUNTER 2019-02-06 19:02 | Outpatient (CLI) | END 2019-02-06 19:22 | disposition short-term general hospital (02) | LOC: AMBL 19:02 | PROVIDERS: ATTEND Family Medicine | DX: R06.02 Shortness of breath (principal); R50.9 Fever, unspecified ==